=== PATIENT | female | born 1960 | race Caucasian/White ===

== ENCOUNTER 2018-03-14 14:17 | Emergency (ER) | payer BC ==
--- OUTSIDE RECORDS SUMMARY | 2018-03-14 14:35 | XMS REPORT ---
:1960 External Reference #:[id number] Author Organization [facility] Address [address] [place] [address] Phone [phone] Care Team Providers Name Role Phone Abdiaziz Ernandez MD Care Team Information Occupational Therapy Assist Unavailable Abdiaziz Ernandez MD Primary Care Physician Unavailable Payers Type Date Identification Numbers Payment Provider Subscriber Commercial Effective: Policy Number: BC/BS Of DAFNE Bam Johnson 2012 [id number] Group Name: BCBS Enhanced Benefits [address] [address] PayID: [id number] [place] [address] Problems Date Description Provider Status Onset: 01/02/2014 Obstructive sleep apnea syndrome Abdiaziz Ernandez M.D. Active Onset: 05/15/2015 Non-toxic multinodular goiter Abdiaziz Ernandez M.D. Active Onset: 10/24/2016 Disorder of bone Abdiaziz Ernandez M.D. Active Onset: 10/24/2016 Depressive disorder Abdiaziz Ernandez M.D. Active Onset: 10/24/2016 Bilateral carpal tunnel syndrome Abdiaziz Ernandez M.D. Active Onset: 10/24/2016 Mitral valve disorder Abdiaziz Ernandez M.D. Active Onset: 10/24/2016 Adult health examination Adbiaziz Ernandez M.D. Active Onset: 10/24/2016 Migraine without aura, not Abdiaziz Ernandez M.D. Active refractory Onset: 12/15/2017 Minimal cognitive impairment Abdiaziz Ernandez M.D. Active Onset: 12/15/2017 Pain in limb Abdiaziz Ernandez M.D. Active Onset: 01/02/2014 Osteochondropathy Abdiaziz Ernandez M.D. Inactive Inactive: 10/24/2016 Onset: 01/02/2014 Mixed hyperlipidemia Abdiaziz Ernandez M.D. Inactive Inactive: 10/24/2016 Onset: 01/02/2014 Concussion injury of brain Abdiaziz Ernandez M.D. Inactive Inactive: 10/24/2016 Onset: 05/15/2015 Abnormal weight gain Abdiaziz Ernandez M.D. Inactive Inactive: 10/24/2016 Onset: 05/15/2015 Palpitations Abdiaziz Ernandez M.D. Inactive Inactive: 10/24/2016 Onset: 07/11/2016 Cough Abdiaziz Ernandez M.D. Inactive Inactive: 10/24/2016 Onset: 07/11/2016 Ingrowing nail Abdiaziz Ernandez M.D. Inactive Inactive: 10/24/2016 Family History Date Family Member(s) Problem(s) Comments Onset: (age 42 Years) Father OK cigars Mother Osteoporosis Paternal Grandmother Osteoporosis Social History Type Date Description Comments Marital Status Patient has a significant other Cigarette Use Never Smoked Cigarettes ETOH Use Occasionally consumes alcohol Smoking Patient has never smoked Allergies, Adverse Reactions, Alerts Date Description Reaction Status Severity Comments 02/19/2012 NKDA active 05/15/2015 Bees active Medications Medication Date Status Form Strength Qnty SIG Indications Ordering Provider Cephalexin 03/13/ Active Capsules 500mg 14caps 1 by mouth L03.211 Samantha 2018 twice a Chago, day for 7 [employer] days Gabapentin 10/02/ Active Capsules 100mg 90caps 1 by mouth Abdiaziz Ross 2018 three Shallish, times a M.D. day Epipen 2-Cruzito 05/15/ Active Solution 0.3mg/0.3M 1units use as 2014 Auto-Injec L ricky Singh [employer] Celexa 02/18/ Active Tablets 40mg 90tabs 1 by mouth F43.21 2011 every day YENNY Wang F32.89 Axert 08/14/2006 Active Tablets 12.5mg 30tabs 1 at onset G43.009 Abdiaziz Ross of migraine Shallish, sx M.D. Vitamin D Active Tablets 1000Uni 1 by mouth Unknown t every day otc Azithromycin 07/09/2017 Hx Tablets 250mg 6tabs take 2 R05 Tiffani - tablets by George, 10/01/2017 mouth today [employer] then take 1 tablet daily for next 4 days Note 10/24/2016 Hx needs to Abdiaziz F. - have new Oma, 07/08/2017 cpap M.D. equipment for sleep apnea syndrome Prednisone 07/11/2016 Hx Tablets 20mg 10tabs 2 po qd for Abdiaziz F. - 2 days, Oma, 10/22/2016 then M.D. decrease by 1/2 pill every every 2 days then stop Azithromycin 07/11/2016 Hx Tablets 250mg 12tabs take 2 J06.9 Abdiaziz F. - tablets by Oma, 10/21/2016 mouth x 3d M.D. then take 1 tablet daily for next 6 days Symbicort 07/11/2016 Hx Aerosol 80-4.5m 10.2uni inhale 2 Abdiaziz F. - cg/Act ts puffs by Oma, 10/21/2016 mouth two M.D. times daily Benzonatate 07/11/2016 Hx Capsules 100mg 20caps 1-2 by Abdiaziz F. - mouth three Oma, 10/22/2016 times a day M.D. as needed Dulera 05/10/2016 Hx Aerosol 100-5mc sample 2 puff R05 Tiffani - g/Act twice a day George, 07/11/2016 [employer] Azithromycin 11/09/2015 Hx Tablets 250mg 12tabs take 2 J06.9 Tiffani - tablets by George, 05/10/2016 mouth x 3d [employer] then take 1 tablet daily for next 6 days Budesonide 12/27/2014 Hx Suspension 32mcg/A 1units 2sprays/nos R04.0 Tiffani - ct tril/d George, 05/10/2016 [employer] Physical 05/11/2014 Hx treatment Abdiaziz F. Therapy - and Oma, 12/27/2014 evaluation M.D. low back pain Ibuprofen 05/11/2014 Hx Tablets 600mg 60tabs take 1 724.1 Abdiaziz F. - tablet 3 Oma, 12/27/2014 times a M.D. day as needed 719.44 Flexeril 05/11/2014 - Hx Tablets 10mg 40tabs 1 po q hs prn 723.1 Abdiaziz F. 12/27/2014 muscle spasm Ajit Ernandez Percocet 05/11/2014 - Hx Tablets 5-325m 30tabs 1 po 4 hours Abdiaziz FMela 12/27/2014 g prn Ajit Ernandez Medrol (Cruzito) 05/11/2014 - Hx Tablets 4mg 1tabs as directed Abdiaziz FMela 12/27/2014 Ajit Ernandez Auvi-Q 03/03/2014 - Hx Soaj 0.3mg/ 1units use prn Abdiaziz FMela 05/15/2015 0.3ML anaphylaxis Ajit Ernandez Alendronate 01/02/2014 - Hx Tablets 70mg 12tabs 1 po qweek Abdiazizgrace Ross Sodium 05/11/2014 Ajit Ernandez Zofran Odt 06/29/2013 - Hx Tablets 8mg 4tabs 1 po bid prn Venus 01/02/2014 Dispers vomiting Shannon, Afnp-C Cheratussin ac 06/29/2013 - Hx Syrup 100-10 4oz 5-10 ml every 786.2 Venus 07/06/2013 mg/5ML 6 hrs prn Shannon, cough Afnp-C Work Excuse 06/29/2013 - Hx seen in this Venus 01/02/2014 office , will Shannon, be off work Afnp-C through 07/01/13, will return 07/02/12 Flexeril 01/26/2013 - Hx Tablets 10mg 20tabs 1 po q hs prn 723.1 Tiffani 01/02/2014 muscle spasm George, [employer] Biaxin 09/30/2012 - Hx Tablets 500mg 20tabs take one 466.0 Samantha 12/08/2012 tablet po bid Chago, x 10 days [employer] finish all medication Ventolin HFA 09/30/2012 - Hx Aerosol 108(90 1inhaler 2 puffs bid x 466.0 Samantha 05/11/2014 Base) 10 days Chago, mcg/Ac [employer] t Cheratussin ac 09/30/2012 - Hx Syrup 100-10 100ml 5 ml every 12 786.2 Samantha 12/08/2012 mg/5ML hrs prn cough Chago, [facility] Work Excuse 09/30/2012 - Hx excuse from Samantha 01/29/2013 work due to Chago, illness [employer] 09/27/12 and 10/04/12 Vicoprofen 04/24/2012 - Hx Tablets 7.5-20 60tabs 1-2 po qhs Tiffani 01/29/2013 0mg prn George, [employer] Lamotrigine 02/19/2012 - Hx Tablets 100mg 90tabs 1/2 by mouth F43.21 [facility] 04/30/2017 every night George, at bedtime [facility] Voltaren 02/19/2012 - Hx Gel 1% Gel 300mg apply to 719.41 [facility] 01/02/2014 painful area George, tid [employer] Percocet 09/11/2011 - Hx Tablets 5-325m 20tabs 1 po 4 hours Abdiaziz F. 02/19/2012 g prn Ajit Ernandez Zofran 09/11/2011 - Hx Tablets 4mg 10tabs 1 po q6h prn Abdiaziz F. 02/19/2012 dt Ajit Ernandez Ibuprofen 01/16/2011 - Hx Tablets 600mg 30tabs take 1 tablet 724.1 Abdiaziz F. 01/02/2014 3 times a Oma, day as needed Adriana.DMela 719.44 Physical Therapy 01/16/2011 - Hx treatment and Abdiaziz F. 02/19/2012 evaluation Shallish, neck and chest SkyDMela pain Prednisone 09/20/2010 - Hx Tablets 20mg 5tabs 1 tabs po qd x 785. Tiffani 01/16/2011 5 days 6 George, [employer] Hydrocodone/Acet 09/20/2010 - Hx Tablets 5-32 30tabs 1-2 po qid prn 785. Tiffani aminophen 01/16/2011 5mg pain 6 George, [employer] Azithromycin 09/09/2010 - Hx Tablets 250m 6tabs 2 po today and Narinder T. 09/20/2010 g 1 po x 4 days Ajit Robertson Hydrocodone/Acet 09/09/2010 - Hx Tablets 5-32 30tabs 1-2 po qid prn Narinder Grajeda aminophen 09/20/2010 5mg pain Ajit Robertson Prednisone 09/09/2010 - Hx Tablets 20mg 5tabs 1 tabs po qd x Samantha 09/20/2010 5 days jb Renee M.D. Metoprolol 05/24/2009 - Hx Tablets ER 25mg 90tabs 1/2 po qd Abdiaziz F. Succinate 09/20/2010 24HR Ajit Ernandez Ultram ER 01/31/2009 - Hx Tablets ER 200m sample 1 po qhs 784. Tiffani 05/24/2009 24HR g 0 George, [employer] Cipro 11/13/2007 - Hx Tablets 500m 20tabs 1 po bid Narinder Grajeda 03/28/2008 g Ajit Robertson Wrist Splint, 09/20/2007 - Hx 1units Right Wrist Tiffani Restrictive 11/22/2007 ;Wear as George, Flex/Extend Directed [employer] Isosorbide 05/17/2007 - Hx Tablets 10mg 1 tid Family Dinitrate 09/20/2007 [facility] Potassium 05/17/2007 - Hx Capsules 10Me 180caps 1 po qd Family Chloride 11/13/2007 q [facility] Asa 05/17/2007 - Hx 81mg PO qd Family 03/28/2008 [facility] Protonix 05/17/2007 - Hx Tablets 40mg 30tabs 1 PO qd Abdiaziz F. 11/13/2007 Ajit Ernandez Zithromax 12/05/2006 - Hx Capsules 250m 6caps 2 Tabs PO X1, 466. Tiffani 03/08/2007 g Then 1 Tab PO 0 George, qd X 4 More [employer] Days Physical Therapy 08/14/2006 - Hx treatment and 625. Tiffani 05/17/2007 evaluation of 6 George, stress [employer] incontinence Hearing Eval 08/14/2006 - Hx PT needs to 389. Tiffani 05/17/2007 have A hearing 9 George, evaluation for [employer] hearing loss Augmentin 02/06/2006 - Hx Tablets 500m 20tabs 1 po bid with 462 Tiffani 08/14/2006 g;12 food x 10D George, 5 mg [employer] Axert 01/26/2006 - Hx Tablets 12.5 Samples 1 At Onset Of 346. Tiffani 02/06/2006 mg Migraine SX 10 GeorgeYENNY tang Zmax 08/23/2005 - Hx Suspension 2Gra 60cc 2 Gram PO qd X 466. Glen A. 08/24/2005 /60c 1 0 ziggy Wyatt M.D. Codiclear-DH 08/23/2005 - Hx 100cc One TSP bid 466. Glen A. 09/02/2005 prn 0 Ajit Wyatt Prevacid 07/29/2005 - Hx Capsules 30mg 30caps 1 PO qd Abdiaziz F. 02/06/2006 Ajit Ernandez Doxycycline 09/18/2004 - Hx 100m 20units One PO bid Venus 09/28/2004 g Daily For , Afnp-C Keflex 05/21/2004 - Hx 500m 20units 1 po bid Priya R 09/18/2004 g TRUNG Jim Return To Work 10/19/2003 - Hx seen here, michael Donovan 09/21/2004 to return to [employer], work 09/23/04 Carrie Out Of Work 09/22/2003 - Hx out of work Abdiaziz F. Until 05/21/2004 until october Oma, Ajit Advair Discus 09/12/2003 - Hx 100/ I one inhalation Abdiaziz F. 09/18/2004 50 twice daily Ajit Ernandez Combivent Mdi 09/12/2003 - Hx 1units 2 puffs qid Abdiaziz F. 04/15/2004 Ajit Ernandez Out Of Work 08/09/2003 - Hx will be out of Abdiaziz F. 09/22/2003 work mroa Ernandez M.D. filled out for out of work from 05/08/03 to 08/21/03 Bextra 06/06/2003 - Hx Tablets 10mg Samples 1-2 po qd prn Abdiaziz F. 09/12/2003 Ajit Ernandez Indocin 05/25/2003 - Hx 25mg 60units 1-2 po tid Abdiaziz F. 06/06/2003 with food Ajit Ernandez Note For School 05/08/2003 - Hx no work until Priya R Or Work Absence 05/25/2003 notice. YENNY Mendoza-Ziggy patient has acute pulmonary disease. any questions please contact me. thank you Lelesin ac 04/24/2003 - Hx Liq 4Oz 1-2 tsp po Venus 05/17/2007 q4hs prn cough Carrie Ortega Singulair 04/24/2003 - Hx 10mg 30units qd Priya R 04/15/2004 TRUNG Jim Biaxin XL 04/24/2003 - Hx 500m Priya R 05/25/2003 TRUNG Fields One P.O. bid For Ten Days Edita 04/24/2003 - Hx 180m 30units One qd Priya R 05/25/2003 TRUNG Fields Note For School 04/24/2003 - Hx No Work From Priya R Or Work Absence 05/25/2003 April 24, 2002 To TRUNG May 08, 2003 Due To Acute Illness Zyrtec 03/24/2003 - Hx Tabs 10mg 30tabs 1 po qd Priya R 04/24/2003 TRUNG Jim Tequin 03/24/2003 - Hx 400m 10units 1 PO qd Priya R 05/25/2003 TRUNG Fields Avelox 03/24/2003 - Hx 400m 10units 1 qd Priya R 05/25/2003 TRUNG Fields Advair 03/24/2003 - Hx 250/ One One Inhalation Priya R 05/25/2003 50 bid TRUNG Jim Robitussin 03/24/2003 - Hx Liq ac 120cc 1 TSP PO qid Priya R 05/25/2003 prn Cough TRUNG Jim Celexa 04/21/2002 - Hx 20mg 30units 2 po qd Tiffani 02/19/2012 YENNY Wangsin ac 03/05/2002 - Hx 4Oz 1-2 TSP PO Q4H Karely 03/15/2002 prn Carrie Mcneil Zithromax 03/05/2002 - Hx 250m 6units 2 Tabs Day 1 Karely 03/10/2002 tj Mcneil, 1 Afnp-C Tab qd Days 2 Thru 5 Aciphex 01/20/2002 - Hx 20mg 30units 1 PO qd Abdiaziz F. 12/20/2002 Ajit Ernandez Out Of Work 04/27/2001 - Hx Will Be Out Of Abdiaziz FMela 04/28/2001 Work Through Oma 04/21/01 Alla. She May Return 04/22/01 Out Of Work 04/07/2001 - Hx Will Be Out Of Abdiaziz F. 04/08/2001 Work From O[facility], 04/07/01 to Ajit 04/21/01for post concussive syndrome Out Of Work 04/06/2001 - Hx Will Be Out Of Abdiaziz F. 04/07/2001 [facility] To Ajit 04/21/01 Physical Therapy 04/05/2001 - Hx Treatment And Abdiaziz F. 04/18/2001 Evaluation Rogelio Ernandez.DMela Out Of Work 03/24/2001 - Hx Will Be Out Of Abdiaziz FMela 03/25/2001 Work For 2 Walter Ernandez M.D. Physical Therapy 03/11/2001 - Hx Treatment And Abdiaziz FMela 03/12/2001 Evaluation Ajit Ernandez Neck Pain Thumb Spica 03/11/2001 - Hx 1units Abdiaziz FMela 03/12/2001 Ajit Ernandez Out Of Work 07/29/2000 - Hx Will Be Out Of Abdiaziz F. 07/30/2000 Work Lauren Ernandez M.D. 07/22/00-07/25/00 Zoloft 07/23/2000 - Hx 100m 30units Take One Daily Abdiaziz FMela 12/20/2002 tj Ernandez M.D. Albuterol Unit 07/23/2000 - Hx 1Box Q 3-4 HRS prn Abdiaziz F. Dose 2.5MG 03/11/2001 Ajit Ernandez Prednisone 07/22/2000 - Hx 0 0units Family 03/11/2001 [facility] Robitussin ac 07/22/2000 - Hx 0units 1-2 TSP PO Q4H Family 03/11/2001 prn [facility] Out Of Work 07/22/2000 - Hx Will Be Out Of Karely 07/25/2000 Work Carrie Mcneil Until 07/25/00 Zithromax 03/19/2000 - Hx 250m 6units 2 Tabs Day 1 Tiffani 03/29/2000 g George, 1 [employer] Tab qd Days 2 Thru 5 Robitussin ac 03/19/2000 - Hx 4Oz 1-2 TSP PO Q4H Tiffani 03/29/2000 prn George, [employer] Zoloft 10/26/1999 - Hx 50mg 30units 1 PO qd Abdiaziz F. 07/23/2000 Ajit Ernandez Motrin 10/26/1999 - Hx 600m 60units 1 PO tid prn Abdiaziz F. 12/20/2002 tj Ernandez M.D. Zithromax 05/03/1999 - Hx 250m 6units 2 Tabs Day 1 Tiffani 05/08/1999 g George, 1 [employer] Tab qd Days 2 Thru 5 Fenesin 05/03/1999 - Hx Tabs 600m 15tabs 1 PO bid prn Tiffani 10/26/1999 g For Congestion George [employer] Note - Hx no work until Hernán, 05/25/2003 further Priya [employer]-C notice- PT has acute pulmonary disease. any questions, please contact me .thank you. nr hernán joshua Levbid - Hx Tablets ER 0.37 1 PO qd Unknown 02/26/2010 12HR 5mg Feosol - Hx Tablets 45mg qod Unknown 02/19/2012 Alendronate - Hx Solution 70mg 300units use weekly as Abdiaziz F. Sodium 10/24/2016 /75M directed Julio C Ernandez M.D. Multivitamin - Hx Tablets 1 by mouth Unknown Adult 10/01/2017 every day Hydrocortisone - Hx Cream 2.5% apply to Unknown 03/12/2018 affected area three times a day Immunizations CPT Code Status Date Vaccine Lot # [id number] Given 05/15/2015 Influenza Vac, Quadrivalent, Slit Virus, Im [id number] Given 08/18/2013 Hepatitis B Immunization, adult dosage, for [id number] intramuscular use 46685 Given 05/11/2013 Hepatitis B Immunization, adult dosage, for [id number] intramuscular use 26945 Given 01/26/2013 Hepatitis B Immunization, adult dosage, for [id number] intramuscular use 70390 Given 01/26/2013 Hep A Adlt Immunization [id number] 52676 Given 02/26/2010 Tdap Tetanus, W Pertussis [id number] Vital Signs Date Vital Result Comment 03/13/2018 BP Systolic 104 mmHg BP Diastolic 60 mmHg Heart Rate 78 /min Body Temperature 97.7 F Height 66.5 inches 5'6.50" Weight 186.00 lb BMI (Body Mass Index) 29.6 kg/m2 12/15/2017 BP Systolic 136 mmHg BP Diastolic 60 mmHg Heart Rate 66 /min Body Temperature 97.9 F Respiratory Rate 16 /min Height 66.5 inches 5'6.50" Weight 185.12 lb BMI (Body Mass Index) 29.4 kg/m2 10/02/2017 BP Systolic 122 mmHg BP Diastolic 68 mmHg Heart Rate 84 /min Body Temperature 97.3 F Height 66.5 inches 5'6.50" Weight 187.00 lb BMI (Body Mass Index) 29.7 kg/m2 07/09/2017 BP Systolic 110 mmHg BP Diastolic 80 mmHg Heart Rate 78 /min Body Temperature 97.5 F Height 66.5 inches 5'6.50" Weight 188.00 lb BMI (Body Mass Index) 29.9 kg/m2 04/30/2017 BP Systolic 128 mmHg BP Diastolic 92 mmHg Heart Rate 80 /min Body Temperature 97.5 F Height 66.5 inches 5'6.50" Weight 184.00 lb BMI (Body Mass Index) 29.3 kg/m2 10/24/2016 BP Systolic 90 mmHg BP Diastolic 58 mmHg Heart Rate 68 /min Body Temperature 97.9 F Respiratory Rate 16 /min Height 66.5 inches 5'6.50" Weight 185.00 lb BMI (Body Mass Index) 29.4 kg/m2 07/11/2016 BP Systolic 124 mmHg BP Diastolic 80 mmHg Heart Rate 72 /min Body Temperature 97.7 F Respiratory Rate 18 /min O2 % BldC Oximetry 98 % Height 66.5 inches 5'6.50" Weight 183.00 lb BMI (Body Mass Index) 29.1 kg/m2 05/10/2016 BP Systolic 120 mmHg BP Diastolic 80 mmHg Heart Rate 64 /min Body Temperature 97.7 F Height 66.5 inches 5'6.50" Weight 180.00 lb BMI (Body Mass Index) 28.6 kg/m2 11/09/2015 BP Systolic 110 mmHg BP Diastolic 70 mmHg Heart Rate 72 /min Body Temperature 98.2 F Respiratory Rate 18 /min Weight 181.00 lb 05/15/2015 BP Systolic 120 mmHg BP Diastolic 78 mmHg Heart Rate 60 /min Body Temperature 96.7 F Respiratory Rate 16 /min Height 66.5 inches 5'6.50" Weight 187.50 lb BMI (Body Mass Index) 29.8 kg/m2 12/27/2014 BP Systolic 126 mmHg BP Diastolic 80 mmHg Heart Rate 62 /min Body Temperature 97.6 F Respiratory Rate 18 /min Height 66.5 inches 5'6.50" Weight 183.00 lb BMI (Body Mass Index) 29.1 kg/m2 05/11/2014 BP Systolic 120 mmHg BP Diastolic 70 mmHg Heart Rate 68 /min Body Temperature 98.4 F Respiratory Rate 18 /min Height 66.5 inches 5'6.50" Weight 175.00 lb BMI (Body Mass Index) 27.8 kg/m2 03/03/2014 BP Systolic 110 mmHg BP Diastolic 66 mmHg Heart Rate 64 /min Body Temperature 98.4 F Respiratory Rate 16 /min Height 66.5 inches 5'6.50" Weight 175.00 lb BMI (Body Mass Index) 27.8 kg/m2 01/02/2014 BP Systolic 110 mmHg BP Diastolic 64 mmHg Heart Rate 64 /min Body Temperature 98.2 F Respiratory Rate 15 /min Height 66.5 inches 5'6.50" Weight 178.50 lb BMI (Body Mass Index) 28.4 kg/m2 06/29/2013 BP Systolic 110 mmHg BP Diastolic 80 mmHg Heart Rate 76 /min Body Temperature 98.2 F Respiratory Rate 18 /min Height 66.5 inches 5'6.50" Weight 169.00 lb BMI (Body Mass Index) 26.9 kg/m2 01/26/2013 BP Systolic 108 mmHg BP Diastolic 64 mmHg Heart Rate 72 /min Body Temperature 97.9 F Respiratory Rate 18 /min Height 66.5 inches 5'6.50" Weight 168.00 lb BMI (Body Mass Index) 26.7 kg/m2 12/08/2012 BP Systolic 104 mmHg BP Diastolic 62 mmHg Heart Rate 76 /min Body Temperature 99.1 F Respiratory Rate 16 /min Height 66.5 inches 5'6.50" Weight 169.00 lb BMI (Body Mass Index) 26.9 kg/m2 09/30/2012 BP Systolic 122 mmHg BP Diastolic 82 mmHg Heart Rate 102 /min Body Temperature 98.2 F Height 66.5 inches 5'6.50" Weight 174.38 lb BMI (Body Mass Index) 27.7 kg/m2 06/28/2012 BP Systolic 110 mmHg BP Diastolic 80 mmHg Heart Rate 76 /min Body Temperature 98.1 F Height 66.5 inches 5'6.50" Weight 188.00 lb BMI (Body Mass Index) 29.9 kg/m2 02/19/2012 BP Systolic 138 mmHg BP Diastolic 84 mmHg Heart Rate 66 /min Body Temperature 98.4 F Height 66.5 inches 5'6.50" Weight 194.00 lb BMI (Body Mass Index) 30.8 kg/m2 01/16/2011 BP Systolic 128 mmHg BP Diastolic 80 mmHg Heart Rate 76 /min Body Temperature 98.2 F Height 66.5 inches 5'6.50" Weight 193.00 lb BMI (Body Mass Index) 30.7 kg/m2 09/20/2010 BP Systolic 112 mmHg BP Diastolic 72 mmHg Heart Rate 68 /min Body Temperature 97.6 F Height 66.5 inches 5'6.50" Weight 182.00 lb BMI (Body Mass Index) 28.9 kg/m2 09/09/2010 BP Systolic 120 mmHg BP Diastolic 80 mmHg Heart Rate 72 /min Body Temperature 98.4 F 05/13/2010 BP Systolic 90 mmHg BP Diastolic 70 mmHg Heart Rate 68 /min Body Temperature 98.1 F Height 66.5 inches 5'6.50" Weight 188.00 lb BMI (Body Mass Index) 29.9 kg/m2 03/23/2010 BP Systolic 110 mmHg BP Diastolic 66 mmHg Heart Rate 60 /min Body Temperature 97.9 F Height 66.5 inches 5'6.50" Weight 187.00 lb BMI (Body Mass Index) 29.7 kg/m2 02/26/2010 BP Systolic 90 mmHg BP Diastolic 68 mmHg Heart Rate 60 /min Body Temperature 97.7 F Height 66.5 inches 5'6.50" Weight 189.00 lb BMI (Body Mass Index) 30.0 kg/m2 12/05/2009 BP Systolic 110 mmHg BP Diastolic 60 mmHg Body Temperature 97.0 F Height 66.5 inches 5'6.50" Weight 183.00 lb BMI (Body Mass Index) 29.1 kg/m2 08/23/2009 BP Systolic 118 mmHg BP Diastolic 70 mmHg Heart Rate 72 /min Height 66.5 inches 5'6.50" Weight 180.00 lb BMI (Body Mass Index) 28.6 kg/m2 05/24/2009 BP Systolic 124 mmHg BP Diastolic 68 mmHg Heart Rate 72 /min Body Temperature 97.8 F Weight 177.00 lb 01/31/2009 BP Systolic 118 mmHg BP Diastolic 62 mmHg Heart Rate 68 /min Body Temperature 98.1 F Respiratory Rate 20 /min Weight 187.00 lb 11/20/2008 BP Systolic 106 mmHg BP Diastolic 70 mmHg Heart Rate 68 /min Height 66.5 inches 5'6.50" Weight 191.00 lb BMI (Body Mass Index) 30.4 kg/m2 08/08/2008 BP Systolic 122 mmHg BP Diastolic 72 mmHg Heart Rate 68 /min Body Temperature 98.3 F Weight 180.00 lb 07/04/2008 BP Systolic 114 mmHg BP Diastolic 78 mmHg Heart Rate 64 /min Body Temperature 98.4 F Respiratory Rate 16 /min Height 66.5 inches 5'6.50" Weight 186.00 lb BMI (Body Mass Index) 29.6 kg/m2 03/28/2008 BP Systolic 120 mmHg BP Diastolic 80 mmHg Heart Rate 84 /min Body Temperature 98.2 F O2 % BldC Oximetry 98 % Height 66.5 inches 5'6.50" Weight 183.00 lb BMI (Body Mass Index) 29.1 kg/m2 11/22/2007 BP Systolic 110 mmHg BP Diastolic 80 mmHg Heart Rate 76 /min Body Temperature 98.8 F Height 66.5 inches 5'6.50" 11/13/2007 BP Systolic 108 mmHg BP Diastolic 60 mmHg Heart Rate 60 /min Body Temperature 98.1 F Height 66.5 inches 5'6.50" Weight 186.00 lb BMI (Body Mass Index) 29.6 kg/m2 09/20/2007 BP Systolic 114 mmHg BP Diastolic 64 mmHg Heart Rate 74 /min Height 66.5 inches 5'6.50" Weight 186.00 lb BMI (Body Mass Index) 29.6 kg/m2 07/28/2007 BP Systolic 108 mmHg BP Diastolic 70 mmHg Heart Rate 72 /min Body Temperature 97.6 F Respiratory Rate 16 /min Height 66.5 inches 5'6.50" Weight 183.00 lb BMI (Body Mass Index) 29.1 kg/m2 05/17/2007 BP Systolic 112 mmHg BP Diastolic 60 mmHg Heart Rate 72 /min Height 66.5 inches 5'6.50" Weight 186.00 lb BMI (Body Mass Index) 29.6 kg/m2 03/08/2007 BP Systolic 100 mmHg BP Diastolic 60 mmHg Heart Rate 66 /min Body Temperature 98.5 F Height 66.5 inches 5'6.50" 12/05/2006 BP Systolic 110 mmHg BP Diastolic 80 mmHg Heart Rate 72 /min Body Temperature 98.2 F Height 66.5 inches 5'6.50" Weight 185.00 lb BMI (Body Mass Index) 29.4 kg/m2 08/14/2006 BP Systolic 120 mmHg BP Diastolic 70 mmHg Heart Rate 68 /min Body Temperature 98.0 F Height 66.5 inches 5'6.50" 03/12/2006 BP Systolic 116 mmHg BP Diastolic 74 mmHg Heart Rate 82 /min Respiratory Rate 14 /min Height 66.5 inches 5'6.50" 02/06/2006 BP Systolic 110 mmHg BP Diastolic 70 mmHg Body Temperature 98.8 F Height 66.5 inches 5'6.50" Weight 176.00 lb BMI (Body Mass Index) 28.0 kg/m2 01/26/2006 BP Systolic 130 mmHg BP Diastolic 80 mmHg Heart Rate 72 /min Body Temperature 97.9 F Height 66.5 inches 5'6.50" 12/31/2005 BP Systolic 112 mmHg BP Diastolic 72 mmHg Heart Rate 80 /min Height 66.5 inches 5'6.50" Weight 177.00 lb BMI (Body Mass Index) 28.1 kg/m2 08/23/2005 BP Systolic 122 mmHg BP Diastolic 82 mmHg Heart Rate 74 /min Body Temperature 98.5 F O2 % BldC Oximetry 99 % Height 66.5 inches 5'6.50" Weight 182.00 lb BMI (Body Mass Index) 28.9 kg/m2 08/18/2005 BP Systolic 124 mmHg BP Diastolic 76 mmHg Height 66.5 inches 5'6.50" Weight 184.00 lb BMI (Body Mass Index) 29.3 kg/m2 07/29/2005 BP Systolic 118 mmHg BP Diastolic 80 mmHg Heart Rate 66 /min Body Temperature 99.2 F Height 66.5 inches 5'6.50" Weight 186.00 lb BMI (Body Mass Index) 29.6 kg/m2 02/18/2005 BP Systolic 120 mmHg BP Diastolic 72 mmHg Heart Rate 80 /min Body Temperature 97.8 F Height 66.5 inches 5'6.50" Weight 175.00 lb BMI (Body Mass Index) 27.8 kg/m2 09/18/2004 BP Systolic 122 mmHg BP Diastolic 72 mmHg Heart Rate 60 /min Body Temperature 97.0 F O2 % BldC Oximetry 99 % Height 66.5 inches 5'6.50" Weight 187.00 lb BMI (Body Mass Index) 29.7 kg/m2 05/21/2004 BP Systolic 128 mmHg BP Diastolic 80 mmHg Heart Rate 72 /min Height 66.5 inches 5'6.50" Weight 188.00 lb BMI (Body Mass Index) 29.9 kg/m2 04/15/2004 BP Systolic 112 mmHg BP Diastolic 70 mmHg Heart Rate 60 /min Body Temperature 96.8 F Height 66.5 inches 5'6.50" Weight 188.00 lb BMI (Body Mass Index) 29.9 kg/m2 10/19/2003 BP Systolic 108 mmHg BP Diastolic 70 mmHg Heart Rate 72 /min Height 66.5 inches 5'6.50" Weight 190.00 lb BMI (Body Mass Index) 30.2 kg/m2 09/12/2003 BP Systolic 100 mmHg BP Diastolic 70 mmHg Heart Rate 68 /min Height 66.5 inches 5'6.50" Weight 192.00 lb BMI (Body Mass Index) 30.5 kg/m2 08/15/2003 BP Systolic 96 mmHg BP Diastolic 62 mmHg Heart Rate 60 /min O2 % BldC Oximetry 99 % Height 66.5 inches 5'6.50" Weight 190.00 lb BMI (Body Mass Index) 30.2 kg/m2 07/04/2003 BP Systolic 106 mmHg BP Diastolic 70 mmHg Heart Rate 72 /min Height 66.5 inches 5'6.50" Weight 186.00 lb BMI (Body Mass Index) 29.6 kg/m2 05/25/2003 BP Systolic 114 mmHg BP Diastolic 72 mmHg Heart Rate 60 /min Height 66.5 inches 5'6.50" Weight 183.00 lb BMI (Body Mass Index) 29.1 kg/m2 03/24/2003 BP Systolic 128 mmHg BP Diastolic 70 mmHg Heart Rate 64 /min Body Temperature 97.1 F Height 66.5 inches 5'6.50" Weight 186.00 lb BMI (Body Mass Index) 29.6 kg/m2 12/20/2002 BP Systolic 112 mmHg BP Diastolic 80 mmHg Height 66.5 inches 5'6.50" Weight 180.00 lb BMI (Body Mass Index) 28.6 kg/m2 03/05/2002 BP Systolic 110 mmHg BP Diastolic 80 mmHg Heart Rate 88 /min Body Temperature 99.8 F Height 66.5 inches 5'6.50" Weight 180.00 lb BMI (Body Mass Index) 29.0 kg/m2 02/10/2002 BP Systolic 118 mmHg BP Diastolic 70 mmHg Height 66.5 inches 5'6.50" Weight 181.00 lb BMI (Body Mass Index) 29.2 kg/m2 01/20/2002 BP Systolic 112 mmHg BP Diastolic 70 mmHg Body Temperature 97.2 F Height 66.5 inches 5'6.50" Weight 181.00 lb BMI (Body Mass Index) 29.2 kg/m2 03/11/2001 BP Systolic 92 mmHg BP Diastolic 68 mmHg Heart Rate 68 /min Body Temperature 97.1 F Height 66.5 inches 5'6.50" Weight 164.00 lb BMI (Body Mass Index) 26.5 kg/m2 07/22/2000 BP Systolic 90 mmHg BP Diastolic 60 mmHg Heart Rate 72 /min Body Temperature 98.6 F Height 66.5 inches 5'6.50" Weight 143.00 lb BMI (Body Mass Index) 23.1 kg/m2 03/19/2000 BP Systolic 110 mmHg BP Diastolic 70 mmHg Body Temperature 97.1 F Weight 143.00 lb 10/26/1999 BP Systolic 94 mmHg LA SM Cuff BP Diastolic 64 mmHg LA SM Cuff Body Temperature 97.4 F Weight 140.00 lb 05/03/1999 Body Temperature 96.8 F Weight 142.00 lb Results Test Date Test Result H/L Range Note Laboratory test finding 10/02/2017 Vitamin B-12 325 pg/mL 230-1050 Free T4 1.65 ng/dL High 0.75-1.54 1 TSH 1.76 mIU/L 0.50-6.00 Vitamin D25 37 30-100 Comprehensive Metabolic Prof 10/02/2017 Sodium 141 mEq/L 134-149 Potassium 4.3 mEq/L 3.6-5.5 Chloride 105 mEq/L 94-112 Carbon Dioxide 26 mEq/L 21-32 Glucose 99 mg/dL 70-105 BUN 12 mg/dL 6-26 Creatinine 0.8 mg/dL 0.6-1.4 BUN/Creat Ratio 15.0 CALC 8.0-36.0 Calcium 9.9 mg/dL 8.6-10.2 Total Protein 7.2 g/dL 6.4-8.3 Albumin 4.8 g/dL 3.8-5.5 Globulin 2.4 g/dL 2.0-4.8 A/G Ratio 2.0 CALC 0.6-2.3 Alk. Phosphatase 65 U/L 30-110 Alt (SGPT) 16 U/L 7-35 Ast (Sgot) 15 U/L 5-34 Total Bilirubin 0.5 mg/dL 0.2-1.3 GFR Non- >60 ml/min/1.73m^ >=60 GFR >60 ml/min/1.73m^ >=60 CBC Electronic [facility] 10/02/2017 WBC 5.2 x10^3/UL 4.0-10.0 RBC 4.75 x10^6/UL 3.93-6.00 HGB 13.3 g/dL 12.0-17.0 HCT 40 % 35-50 MCV 83.8 fL 80.0-95.0 MCH 28.0 pg 25.6-32.2 MCHC 33.4 g/dL 32.2-36.0 RDW-CV 13.7 % 11.6-14.4 PLT 329 x10^3/UL 163-400 MPV 10.0 fL 9.4-12.4 Gisel# 3.16 x10^3/UL 1.56-6.13 Lymph# 1.47 x10^3/UL 1.18-3.74 Nobles# 0.42 x10^3/UL 0.24-0.82 Eos # 0.1 x10^3/UL 0.0-0.5 Baso # 0.04 x10^3/UL 0.01-0.08 Gisel% 60.4 % 34.0-70.0 Lymph % 28.1 % 20.0-52.0 Nobles% 8.0 % 5.0-12.0 Eos% 2.5 % 0.7-7.0 Baso% 0.8 % 0.1-1.2 Ua - Micro (a) 10/24/2016 Appearance clear Color yellow Glucose, Urine (a/[facility]/CTX) neg Bilirubin neg Ketones neg SP Grav 1.010 Blood neg PH 5.0 Protein neg Urobil 0.2 Nitrite neg Leukocytes (a/[facility]rex) trace WBC ([facility]) 1-2 RBC 0-1 Epith rare /Lpf Bacteria rare /Hpf Complete Blood Count 10/24/2016 WBC 6.6 x10^3/UL 3.6-9.6 RBC 4.77 x10^6/UL 3.90-5.70 HGB 13.4 g/dL 12.1-17.2 HCT 39 % 36-50 MCV 83.0 fL 82.2-97.4 MCH 28.1 pg 27.6-33.3 MCHC 34.0 g/dL 33.0-35.5 RDW 14.2 % High 11.6-13.7 PLT 316 x10^3/UL 150-400 MPV 7.4 fL 7.4-10.4 Gran # 4.3 x10^3/UL 1.5-7.2 Lymph# 2.1 x10^3/UL 0.7-4.9 Nobles# 0.2 x10^3/UL 0.1-0.9 Gran % 63.5 % 42.2-75.2 Lymph % 32.3 % 20.5-51.1 Nobles% 4.2 % 1.7-9.3 Comprehensive Metabolic Prof 10/24/2016 Sodium 139 mEq/L 134-149 Potassium 4.7 mEq/L 3.6-5.5 Chloride 102 mEq/L 94-112 Carbon Dioxide 24 mEq/L 21-32 Glucose 97 mg/dL 70-105 BUN 22 mg/dL 6-26 Creatinine 0.7 mg/dL 0.6-1.4 BUN/Creat Ratio 31.4 CALC 8.0-36.0 Calcium 9.7 mg/dL 8.6-10.2 Total Protein 6.9 g/dL 6.4-8.3 Albumin 4.4 g/dL 3.8-5.5 Globulin 2.5 g/dL 2.0-4.8 A/G Ratio 1.8 CALC 0.6-2.3 Alk. Phosphatase 49 U/L 30-110 Alt (SGPT) 18 U/L 7-35 Ast (Sgot) 17 U/L 5-34 Total Bilirubin 0.3 mg/dL 0.2-1.3 GFR Non- >60 ml/min/1.73m^ >=60 GFR >60 ml/min/1.73m^ >=60 Lipid Profile 10/24/2016 Cholesterol 179 mg/dL 120-200 Triglycerides 152 mg/dL 30-200 HDL Cholesterol 58 mg/dL 30-85 LDL (Calculated) 91 CALC 0-129 VLDL Cholesterol 30 mg/dL 0-50 HDL Risk Factor 3.1 CALC 0.0-4.4 Laboratory test finding 10/24/2016 TSH 1.42 mIU/L 0.50-6.00 Free T4 1.48 ng/dL 0.75-1.54 Vitamin D25 40 30-100 Comprehensive Metabolic Prof 05/15/2015 Sodium 138 mEq/L 134-149 Potassium 4.3 mEq/L 3.6-5.5 Chloride 99 mEq/L 94-112 Carbon Dioxide 27 mEq/L 21-32 Glucose 98 mg/dL 70-105 BUN 13 mg/dL 6-26 Creatinine 1.0 mg/dL 0.6-1.4 BUN/Creat Ratio 13.0 CALC 8.0-36.0 Calcium 9.5 mg/dL 8.6-10.2 Total Protein 7.2 g/dL 6.4-8.3 Albumin 4.5 g/dL 3.8-5.5 Globulin 2.7 g/dL 2.0-4.8 A/G Ratio 1.7 CALC 0.6-2.3 Alk. Phosphatase 56 U/L 30-110 Alt (SGPT) 15 U/L 7-35 Ast (Sgot) 17 U/L 5-34 Total Bilirubin 0.2 mg/dL 0.2-1.3 GFR Non- >60 ml/min/1.73m^ >=60 GFR >60 ml/min/1.73m^ >=60 Laboratory test finding 05/15/2015 Free T4 1.55 ng/dL High 0.75-1.54 2 TSH 1.20 mIU/L 0.50-6.00 Lipid Profile 05/15/2015 Cholesterol 164 mg/dL 120-200 Triglycerides 140 mg/dL 30-200 HDL Cholesterol 61 mg/dL 30-85 LDL (Calculated) 75 CALC 0-129 VLDL Cholesterol 28 mg/dL 0-50 HDL Risk Factor 2.7 CALC 0.0-4.4 CBC Electronic (a) 05/15/2015 WBC 6.9 3.6-9.6 RBC 4.90 3.90-5.70 Hemoglobin (Fma/CMC/CTX) 13.3 g/dL 12.1 - 17.2 Hematocrit (Fma/CMC/CTX) 41.7 % 36.1 - 50.3 Platelets 345 10^3/ul 150-400 Lymph% 39.2 % 17.0-48.0 Mixed% 4.0 Neutrophils % 56.8 Mean Corpuscular Vol 85 82.2-97.4 Mean Corpuscular Hemoglobin 27.1 Low 27.6-33.3 Mean Corpuscular Hemo Concen 31.9 Low 32.0-36.0 RDW 13.8 High 11.6-13.7 Mean Platelet Volume 7.3 5.5-11.0 Laboratory test finding 03/23/2014 Honey Bee Allergen IgE <0.35 kU/L 3 Paper Wasp Allergen IgE <0.35 kU/L 4 White-Faced Hornet Allerg IgE <0.35 kU/L 5 Yellow Hornet Allergen IgE <0.35 kU/L 6 Yellow Jacket Allergen IgE <0.35 kU/L 7 Tryptase 4.9 ng/mL <11.5 8 Urinalysis Profile 02/26/2014 Urine Color Straw Urine Appearance Clear Urine Specific [place] 1.003 Low 1.010-1.030 Urine pH 5.0 5-9 Urine Urobilinogen Negative Negative Urine Ketones Negative Negative Urine Protein Negative Negative Urine Leukocytes 1+ Negative Urine Blood Negative Negative Urine Nitrite Negative Negative Urine Bilirubin Negative Negative Urine Glucose 1+(50 mg/dL) Negative Urine White Blood Cell Trace Absent Urine Red Blood Cell Trace(0-2/hpf) Absent Urine Bacteria 1+ Absent Urine Squamous Epithelial Cell Present Absent CBC Auto Diff 02/26/2014 White Blood Count 12.4 10^3/uL High 4.8-10.8 Red Blood Count 4.66 10^6/uL 4.0-5.4 Hemoglobin 13.0 g/dL 12.0-16.0 Hematocrit 40 % 35-47 Mean Corpuscular Volume 85 fL 80-97 Mean Corpuscular Hemoglobin 28 pg 27-31 Mean Corpuscular HGB Conc 33 g/dL 31-36 Red Cell Distribution Width 14 % 10.5-15 Platelet Count 356 10^3/uL 150-450 Mean Platelet Volume 8 um3 7.4-10.4 Abs Neutrophils 5.6 10^3/uL 1.5-7.7 Abs Lymphocytes 5.6 10^3/uL High 1.0-4.8 Abs Monocytes 0.8 10^3/uL 0-0.8 Abs Eosinophils 0.3 10^3/uL 0-0.6 Abs Basophils 0 10^3/uL 0-0.2 Abs Nucleated RBC 0.01 10^3/uL Granulocyte % 45.6 % 38-83 Lymphocyte % 45.2 % 25-47 Monocyte % 6.5 % 1-9 Eosinophil % 2.3 % 0-6 Basophil % 0.4 % 0-2 Nucleated Red Blood Cells % 0.1 Inr/Protime 02/26/2014 Inr 1.01 0.85-1.06 Laboratory test finding 02/26/2014 Activated Partial 27.3 seconds 24.0- 36.1 Thrombo Time Lactic Acid 2.8 mmol/L High 0.5-2.2 9 Comp Metabolic Panel 02/26/2014 Sodium 136 mmol/L 133-145 Potassium 2.9 mmol/L Low 3.7-5.6 Chloride 105 mmol/L 101-111 Co2 Carbon Dioxide 23 mmol/L 22-32 Anion Gap 8 mmol/L 2-11 Glucose 211 mg/dL High 70-100 Blood Urea Nitrogen 16 mg/dL 6-24 Creatinine 0.79 mg/dL 0.51-0.95 BUN/Creatinine Ratio 20.3 High 8-20 Calcium 9.0 mg/dL 8.6-10.3 Total Protein 7.0 g/dL 6.4-8.9 Albumin 4.1 g/dL 3.2-5.2 Globulin 2.9 g/dL 2-4 Albumin/Globulin Ratio 1.4 1-3 Total Bilirubin 0.30 mg/dL 0.2-1.0 Alkaline Phosphatase 55 U/L 34-104 Alt 14 U/L 7-52 Ast 16 U/L 13-39 Egfr Non- 75.6 >60 Egfr 97.2 >60 10 Laboratory test finding 02/26/2014 Troponin I 0.00 ng/mL <0.03 11 Magnesium 2.0 mg/dL 1.9-2.7 12 Basic Metabolic Panel 12/08/2012 Sodium 139 mmol/L 133-145 Potassium 3.3 mmol/L Low 3.5-5.0 Chloride 103 mmol/L 101-111 Co2 Carbon Dioxide 28.0 mmol/L 22-32 Anion Gap 8.0 mmol/L 2-11 Glucose 97 mg/dL 70-100 Blood Urea Nitrogen 4 mg/dL Low 6-24 Creatinine 0.70 mg/dL 0.50-1.40 BUN/Creatinine Ratio 5.7 Low 8-20 Calcium 9.0 mg/dL 8.1-9.9 Egfr Non- 87.2 >60 Egfr 112.1 >60 13 Laboratory test 12/08/2012 C Reactive Protein 8.5 mg/dL High Less than 0.5 finding CBC Auto Diff 12/08/2012 White Blood Count 4.6 10^3/uL Low 4.8-10.8 Red Blood Count 4.69 10^6/uL 4.0-5.4 Hemoglobin 12.8 g/dL 12.0-16.0 Hematocrit 39 % 35-47 Mean Corpuscular Volume 84 fL 80-97 Mean Corpuscular Hemoglobin 27 pg 27-31 Mean Corpuscular HGB Conc 33 g/dL 31-36 Red Cell Distribution Width 15 % 10.5-15 Platelet Count 235 10^3/uL 150-450 Mean Platelet Volume 9 um3 7.4-10.4 Abs Neutrophils 2.9 10^3/uL 1.5-7.7 Abs Lymphocytes 1.2 10^3/uL 1.0-4.8 Abs Monocytes 0.4 10^3/uL 0-0.8 Abs Eosinophils 0 10^3/uL 0-0.6 Abs Basophils 0 10^3/uL 0-0.2 Abs Nucleated RBC 0 10^3/uL Granulocyte % 64.5 % 38-83 Lymphocyte % 25.8 % 25-47 Monocyte % 8.4 % 1-9 Eosinophil % 0.9 % 0-6 Basophil % 0.4 % 0-2 Nucleated Red Blood Cells % 0 Laboratory test finding 12/08/2012 Erythrocyte Sed Rate 40 mm/Hr High 0- 30 Lyme Disease Serology Positive Negative 14 Lyme Western Blot 12/08/2012 Lyme Disease IgG Ab WB Negative Negative Lyme Disease IgG Bands Present No bands detecte <SEE NOTE> kDa 15 Lyme Disease IgM Ab WB Positive Negative Lyme Disease IgM Bands Present p41, p23, kDa Lyme Disease Interpretation See Comment 16 Laboratory test finding 12/06/2012 CSF Glucose 55 mg/dL 50-75 CSF Total Protein 36.0 mg/dL 15-45 CSF Culture & Sensitivity 12/06/2012 CSF Culture Gram Stain (SEE NOTE) 17 Body Fluid Cell Count 12/06/2012 Body Fluid Source Cerebral Spinal Body Fluid Appearance Clear Body Fluid Color Colorless CSF Tube # 1 Body Fluid Volume 0.5 mL Body Fluid WBC 1 Body Fluid RBC 220 Body Fluid Lymph 9 Body Fluid Nobles 1 Body Fluid Total Cells Counted 10 Fluid Reviewed By MD (SEE NOTE) 18 Miscellaneous Test 12/06/2012 Test Name LYME CSF Result See Comment 19 Laboratory test finding 12/06/2012 Serum Negative Negative 20 Comp Metabolic Panel 12/06/2012 Sodium 135 mmol/L 133-145 Potassium 3.7 mmol/L 3.5-5.0 Chloride 103 mmol/L 101-111 Co2 Carbon Dioxide 23.0 mmol/L 22-32 Anion Gap 9.0 mmol/L 2-11 Glucose 117 mg/dL High 70-100 Blood Urea Nitrogen 10 mg/dL 6-24 Creatinine 0.70 mg/dL 0.50-1.40 BUN/Creatinine Ratio 14.3 8-20 Calcium 9.3 mg/dL 8.1-9.9 Total Protein 7.2 g/dL 6.2-8.1 Albumin 3.8 g/dL 3.6-5.4 Globulin 3.4 g/dL 2-4 Albumin/Globulin Ratio 1.1 1-3 Total Bilirubin 0.7 mg/dL 0.4-1.5 Alkaline Phosphatase 75 U/L 30-110 Alt 23 U/L 14-54 Ast 25 U/L 12-42 Egfr Non- 87.2 >60 Egfr 112.1 >60 21 Laboratory test finding 12/06/2012 Lipase 22 U/L 22-51 22 Creatine Kinase 30 U/L 0-200 23 CBC Auto Diff 12/06/2012 White Blood Count 4.1 10^3/uL Low 4.8-10.8 Red Blood Count 4.84 10^6/uL 4.0-5.4 Hemoglobin 13.8 g/dL 12.0-16.0 Hematocrit 41 % 35-47 Mean Corpuscular Volume 84 fL 80-97 Mean Corpuscular Hemoglobin 29 pg 27-31 Mean Corpuscular HGB Conc 34 g/dL 31-36 Red Cell Distribution Width 14 % 10.5-15 Platelet Count 200 10^3/uL 150-450 Mean Platelet Volume 9 um3 7.4-10.4 Abs Neutrophils 3.0 10^3/uL 1.5-7.7 Abs Lymphocytes 0.7 10^3/uL Low 1.0-4.8 Abs Monocytes 0.4 10^3/uL 0-0.8 Abs Eosinophils 0 10^3/uL 0-0.6 Abs Basophils 0 10^3/uL 0-0.2 Abs Nucleated RBC 0.01 10^3/uL Granulocyte % 72.5 % 38-83 Lymphocyte % 17.2 % Low 25-47 Monocyte % 9.6 % High 1-9 Eosinophil % 0.1 % 0-6 Basophil % 0.6 % 0-2 Nucleated Red Blood Cells % 0.2 Laboratory test finding 12/06/2012 Erythrocyte Sed Rate 39 mm/Hr High 0- 30 Urinalysis 12/06/2012 Urine Color [place] Urine Appearance Clear Urine Specific [place] 1.030 1.010-1.030 Urine Esterase 1+ Negative Urine Nitrate Negative Negative Urine Urobilinogen Negative E.U./dL Negative Urine Protein 1+ mg/dL Negative Urine pH 5.5 5-9 Urine Blood Negative Negative Urine Ketones 2+ mg/dL Negative Urine Bilirubin 2+ Negative Urine Glucose Negative mg/dL Negative Urine Microscopic 12/06/2012 Urine WBC 2+ (>10-30 /hpf) None Seen 24 Urine RBC 1+ (<3 /hpf) None Seen Urine Epithelial Cells 2+ Squamous /hpf None Seen Bacteria Urine 1+ None Seen Urine Culture And Sensitivities 12/06/2012 Urine Culture (SEE NOTE) 25 Comprehensive Metabolic Prof 09/20/2010 Albumin 4.8 g/dL 3.8-5.5 Alk. Phos. 73 U/L 30-110 Alt (SGPT) 18 U/L 7-35 Ast (Sgot) 15 U/L 5-34 BUN 15 mg/dL 6-26 Calcium 10.2 mg/dL 8.6-10.2 Chloride 105 mEq/L 94-112 Creatinine 0.8 mg/dL 0.6-1.4 Carbon Dioxide 26 mEq/L 21-32 Glucose 95 mg/dL 70-105 Sodium 139 mEq/L 134-149 Total Bilirubin 0.3 mg/dL 0.2-1.3 Total Protein 7.6 g/dL 6.3-8.1 Potassium 4.4 mEq/L 3.6-5.5 Globulin 2.8 g/dL 2.0-4.8 A/G Ratio 1.8 Calc 0.6-2.2 BUN/Creat Ratio 19.3 Calc 8.0-36.0 CBC Electronic (a) 09/20/2010 WBC 6.6 3.6-9.6 RBC 4.54 3.90-5.70 Hemoglobin (Fma/CMC/CTX) 13.1 g/dL 12.1 - 17.2 Hematocrit (Fma/CMC/CTX) 39.0 % 36.1 - 50.3 Platelets 310 10^3/ul 150-400 Lymph% 36.0 20.5-51.1 Mixed% 7.7 Neutrophils % 56.3 Mean Corpuscular Vol 85.9 82.2-97.4 Mean Corpuscular Hemoglobin 28.9 27.6-33.3 Mean Corpuscular Hemo Concen 33.6 32.0-36.0 RDW 14.2 High 11.6-13.7 Mean Platelet Volume 10.9 6.5-11.0 CBC With Electronic Diff 06/03/2010 White Blood Count 5.8 CUMM 4.8-10.8 Red Cell Count 4.57 CUMM 4.2-5.4 Hemoglobin 13.1 g/dL 12.0-16.0 Hematocrit 38 % 35-47 Mean Corpuscular Volume 83 um3 79-97 Mean Corpuscular Hemoglob 29 pg 27-31 Mean Corpuscular HGB Cone 35 g/dL 32-36 Redcell Distribution WDTH 14 % 10.5-15 Platelet Count 287 CUMM 150-450 Mean Platelet Volume 7.4 um3 7.4-10.4 Gran % 63.0 % 38-83 Lymph % 27.3 % 25-47 Mononuclear % 7.5 % 1-9 Eosinophil % 1.9 % 0-6 Basophil % 0.3 % 0-2 Abs Lymphs 1.6 1.0-4.8 Abs Mononuclear 0.4 0-0.8 Absolute Neutrophil Count 3.7 1.5-7.7 Abs Eosinophils 0.1 0-0.6 Abs Basophils 0 0-0.2 Basic Metabolic Panel 06/03/2010 Sodium 141 mmol/L 135-145 Potassium 4.1 mmol/L 3.5-5.0 Chloride 109 mmol/L 101-111 Co2 (Carbon Dioxide) 26.0 mmol/L 22-32 Anion Gap 6.0 mmol/L 2-11 26 Glucose 83 mg/dL 70-100 27 BUN 11 mg/dL 6-24 Creatinine 0.70 mg/dL 0.50-1.40 One Over Creatinine 1.40 BUN/Creatinine Ratio 15.7 8-20 Calcium 9.0 mg/dL 8.1-9.9 eGFR Non- 93.8 > 60 eGFR 113.5 > 60 28 Cytology Non-Fiberglass Boat [employer]isher 03/28/2010 Cytology Non Fiberglass Boat Finisher <SEE 29 NOTE> Cytology Non-Fiberglass Boat Finisher 03/28/2010 Cytology Non Fiberglass Boat Finisher <SEE 30 NOTE> Laboratory test 03/19/2010 Iron Total 68 g/dL 28-170 finding Ferritin 22 NG/ML 11.0-307 Vitamin B12 286 pg/mL 180-914 Folic Acid 10.9 NG/ML 2-16 Comprehensive Metabolic Prof 02/26/2010 Albumin 4.6 g/dL 3.8-5.5 Alk. Phos. 69 U/L 30-110 Alt (SGPT) 18 U/L 7-35 Ast (Sgot) 17 U/L 5-34 BUN 18 mg/dL 6-26 Calcium 10.0 mg/dL 8.6-10.2 Chloride 98 mEq/L 94-112 Creatinine 0.7 mg/dL 0.6-1.4 Carbon Dioxide 26 mEq/L 21-32 Glucose 88 mg/dL 70-105 Sodium 140 mEq/L 134-149 Total Bilirubin 0.3 mg/dL 0.2-1.3 Total Protein 7.4 g/dL 6.3-8.1 Potassium 5.0 mEq/L 3.6-5.5 Globulin 2.8 g/dL 2.0-4.8 A/G Ratio 1.6 Calc 0.6-2.2 BUN/Creat Ratio 23.6 Calc 8.0-36.0 Laboratory test finding 02/26/2010 Free T4 1.45 ng/dL 0.75-1.54 TSH 1.00 mIU/L 0.50-6.00 Anti Dna (SS) Igg, AB 02/26/2010 Anti-Dna(SS)IgG, Ab, Qn <20 EU 0-19 31 Laboratory test finding 02/26/2010 Rheumatoid Arth Factor 8.5 IU/mL 0.0- 13.9 Laboratory test finding 02/26/2010 Sed Rate (Fma/CMC/[facility]rex) 9mm CBC (a) 02/26/2010 WBC 5.6 3.6-9.6 RBC 4.95 3.90-5.70 Hemoglobin (Fma/CMC/CTX) 13.6 g/dL 12.1 - 17.2 Hematocrit (Fma/CMC/CTX) 43.0 % 36.1 - 50.3 Mean Corpuscular Vol 86.9 82.2-97.4 Mean Corpuscular Hemaglobin 27.5 Low 27.6-33.3 Mean Corpuscular Hemo Concen 31.6 Low 33.0-36.0 Platelets 333 10^3/ul 150-400 Lymph% 36.4 20.5-51.1 Mixed% 4.1 Neutrophils % 59.5 RDW 14.3 High 11.6-13.7 Mean Platelet Volume 11.0 High 7.4-10.4 Comprehensive Metabolic Prof 08/23/2009 Albumin 4.6 g/dL 3.8-5.5 Alk. Phos. 64 U/L 30-110 Alt (SGPT) 12 U/L 7-35 Ast (Sgot) 13 U/L 5-34 BUN 17 mg/dL 6-26 Calcium 9.5 mg/dL 8.6-10.2 Chloride 100 mEq/L 94-112 Creatinine 0.8 mg/dL 0.6-1.4 Carbon Dioxide 27 mEq/L 21-32 Glucose 88 mg/dL 70-105 Sodium 140 mEq/L 134-149 Total Bilirubin 0.3 mg/dL 0.2-1.3 Total Protein 7.3 g/dL 6.3-8.1 Potassium 4.9 mEq/L 3.6-5.5 Globulin 2.6 g/dL 2.0-4.8 A/G Ratio 1.8 Calc 0.6-2.2 BUN/Creat Ratio 19.9 Calc 8.0-36.0 Laboratory test finding 08/23/2009 Free T4 1.34 ng/dL 0.75-1.54 TSH 1.22 mIU/L 0.50-6.00 CBC (a) 08/23/2009 WBC 5.4 3.6-9.6 RBC 5.06 3.90-5.70 Hemoglobin (Fma/CMC/CTX) 14.1 g/dL 12.1 - 17.2 Hematocrit (Fma/CMC/CTX) 44.3 % 36.1 - 50.3 Mean Corpuscular Vol 87.5 82.2-97.4 Mean Corpuscular Hemaglobin 27.9 27.6-33.3 Mean Corpuscular Hemo Concen 31.8 Low 33.0-36.0 Platelets 333 10^3/ul 150-400 Lymph% 32.2 20.5-51.1 Mixed% 7.6 Neutrophils % 60.2 RDW 14.5 High 11.6-13.7 Mean Platelet Volume 10.2 7.4-10.4 Surgical Pathology 07/23/2009 Surgical Pathology <SEE 32 NOTE> CBC With Electronic 04/03/2009 White Blood Count 6.2 CUMM 4.8-10.8 33 Diff Red Cell Count 4.94 CUMM 4.2-5.4 33 Hemoglobin 13.9 g/dL 12.0-16.0 33 Hematocrit 42 % 35-47 33 Mean Corpuscular Volume 84 um3 79-97 33 Mean Corpuscular Hemoglob 28 pg 27-31 33 Mean Corpuscular HGB Cone 34 g/dL 32-36 33 Redcell Distribution WDTH 14 % 10.5-15 33 Platelet Count 311 CUMM 150-450 33 Mean Platelet Volume 8.3 um3 7.4-10.4 33 Gran % 58.6 % 38-83 33 Lymph % 32.6 % 25-47 33 Mononuclear % 7.1 % 1-9 33 Eosinophil % 1.4 % 0-6 33 Basophil % 0.3 % 0-2 33 Abs Lymphs 2.0 1.0-4.8 33 Abs Mononuclear 0.4 0-0.8 33 Absolute Neutrophil Count 3.6 1.5-7.7 33 Abs Eosinophils 0.1 0-0.6 33 Abs Basophils 0 0-0.2 33 Basic Metabolic Panel 04/03/2009 Sodium 138 mmol/L 135-145 33 Potassium 4.6 mmol/L 3.5-5.0 33 Chloride 102 mmol/L 101-111 33 Co2 (Carbon Dioxide) 28.0 mmol/L 22-32 33 Anion Gap 8.0 mmol/L 2-11 33, 34 Glucose 79 mg/dL 70-100 33, 35 BUN 11 mg/dL 6-24 33 Creatinine 0.70 mg/dL 0.50-1.40 33 One Over Creatinine 1.40 33 BUN/Creatinine Ratio 15.7 8-20 33 Calcium 9.8 mg/dL 8.1-9.9 33, 36 eGFR Non- 94.1 > 60 33 eGFR 113.9 > 60 33, 37 Ua - Micro (a) 01/31/2009 Appearance clear Color yellow Glucose - Bilirubin - Ketones trace SP Grav 1.025 Blood - PH 6.0 Protein - Urobil 0.2 Nitrite - Leukocytes (Fma/CMC/[facility]) - Hyaline - /Lpf Granular - /Lpf WBC (a,[facility]rex) 0-2 RBC 1-3 Mucus mod amt /Lpf Epith occ /Lpf Bacteria 1+ /Hpf Amorphous - /Lpf Crystals, Fluid (Fma/CMC/CTX) - Z#Comments - Laboratory test 01/31/2009 Urine Culture negative finding ([facility]) Laboratory test 01/03/2009 Iron 51 g/dL Low 60-150 38, 39 finding Complete Blood Count 01/03/2009 WBC 5.6 x10^3/uL 3.6-9.6 38 Gran# 3.6 x10^3/uL 1.5-7.2 38 Gran% 64.6 % 42.2-75.2 38 HCT 41 % 36-50 38 HGB 14.0 g/dL 12.1-17.2 38 Lymph# 1.5 x10^3/uL 0.7-4.9 38 Lymph% 27.4 % 20.5-51.1 38 MCH 28.1 pg 27.6-33.3 38 MCV 83.3 fL 82.2-97.4 38 MCHC 33.7 g/dL 33.0-35.5 38 Mo# 0.4 x10^3/uL 0.1-0.9 38 Mo% 8.0 % 1.7-9.3 38 MPV 8.4 fL 7.4-10.4 38 PLT 373 x10^3/uL 150-400 38 RBC 4.97 x10^6/uL 3.90-5.70 38 RDW 13.5 % 11.6-13.7 38 Lipid Profile 01/03/2009 Cholesterol 126 mg/dL 120-200 38 HDL 38 mg/dL 30-85 38 Triglycerides 96 mg/dL 30-200 38 HDL Risk Factor 3.3 CALC Low 4.2-7.0 38 LDL (Calculated) 69 CALC 0-129 38 VLDL (Calculated) 19 mg/dL 0-50 38 Comprehensive Metabolic Prof 01/03/2009 Albumin 4.0 g/dL 3.8-5.5 38 Alk. Phos. 58 U/L 30-110 38 Alt (SGPT) 12 U/L 7-35 38 Ast (Sgot) 9 U/L 5-34 38 BUN 18 mg/dL 6-26 38 Calcium 9.5 mg/dL 8.6-10.2 38 Chloride 103 mEq/L 94-112 38 Creatinine 0.8 mg/dL 0.6-1.4 38 Carbon Dioxide 24 mEq/L 21-32 38 Glucose 95 mg/dL 70-105 38 Sodium 138 mEq/L 134-149 38 Total Bilirubin 0.3 mg/dL 0.2-1.3 38 Total Protein 6.6 g/dL 6.3-8.1 38 Potassium 4.4 mEq/L 3.6-5.5 38 Globulin 2.6 g/dL 2.0-4.8 38 A/G Ratio 1.5 Calc 0.6-2.2 38 BUN/Creat Ratio 21.6 Calc 8.0-36.0 38 Laboratory test finding 01/03/2009 TSH 1.54 mIU/L 0.50-6.00 38 Free T4 1.54 ng/dL 0.75-1.54 38 Cytology Non [employer] 09/21/2008 Cytology Non [employer] <SEE 40 ([facility] [place] Cytology Non [employer] 09/21/2008 Cytology Non [employer] <SEE 41 ([facility] [place] NOTE> CBC ([facility]ma) 07/04/2008 WBC 7.1 3.6-9.6 RBC 4.62 3.90-5.70 Hemoglobin (Fma/CMC/CTX) 13.5 g/dL 12.1 - 17.2 Hematocrit (Fma/CMC/CTX) 39.0 % 36.1 - 50.3 Mean Corpuscular Vol 84.4 82.2-97.4 Mean Corpuscular Hemaglobin 29.2 27.6-33.3 Mean Corpuscular Hemo Concen 34.6 33.0-36.0 Platelets 290 10^3/ul 150-400 Lymph% 31.4 20.5-51.1 Mixed% 6.9 Neutrophils % 61.7 RDW 14.5 High 11.6-13.7 Mean Platelet Volume 10.2 7.4-10.4 Laboratory test finding 07/04/2008 Free T4 1.38 ng/dL 0.75-1.54 42 TSH 1.40 mIU/L 0.50-6.00 42 Basic Metabolic Profile 07/04/2008 BUN 20 mg/dL 6-26 42 Calcium 9.2 mg/dL 8.6-10.2 42 Chloride 103 mEq/L 94-112 42 Creatinine 0.8 mg/dL 0.6-1.4 42 Carbon Dioxide 28 mEq/L 21-32 42 Glucose 91 mg/dL 70-105 42 Sodium 142 mEq/L 134-149 42 Potassium 4.4 mEq/L 3.6-5.5 42 BUN/Creat Ratio 25.4 Calc 8.0-36.0 42 CBC With Electronic Diff Stat 06/08/2008 White Blood Count 7.3 CUMM 4.8- 10.8 Red Cell Count 5.02 CUMM 4.2-5.4 Hemoglobin 14.0 g/dL 12.0-16.0 Hematocrit 41 % 35-47 Mean Corpuscular Volume 82 um3 79-97 Mean Corpuscular Hemoglob 28 pg 27-31 Mean Corpuscular HGB Cone 34 g/dL 32-36 Redcell Distribution WDTH 13 % 10.5-15 Platelet Count 423 CUMM 150-450 Mean Platelet Volume 8.2 um3 7.4-10.4 Gran % 56.4 % 38-83 Lymph % 36.4 % 25-47 Mononuclear % 4.9 % 1-9 Eosinophil % 1.7 % 0-6 Basophil % 0.6 % 0-2 Abs Lymphs 2.7 1.0-4.8 Abs Mononuclear 0.4 0-0.8 Absolute Neutrophil Count 4.1 1.5-7.7 Abs Eosinophils 0.1 0-0.6 Abs Basophils 0 0-0.2 Comp Stat 06/08/2008 Sodium 139 mmol/L 135-145 Potassium 4.0 mmol/L 3.5-5.0 Chloride 107 mmol/L 101-111 Co2 (Carbon Dioxide) 26.0 mmol/L 22-32 Anion Gap 6.0 mmol/L 2-11 43 Glucose 100 mg/dL 70-100 44 BUN 10 mg/dL 6-24 Creatinine 0.80 mg/dL 0.50-1.40 One Over Creatinine 1.20 BUN/Creatinine Ratio 12.5 8-20 Calcium 9.5 mg/dL 8.1-9.9 45 Total Protein 7.2 GM/DL 6.2-8.1 Albumin 4.3 GM/DL 3.6-5.4 Globulin 2.9 GM/DL 2-4 Albumin/Globulin Ratio 1.5 1-3 Bilirubin Total 0.7 mg/dL 0.4-1.5 Alkaline Phosphatase 58 U/L 30-110 Alt (SGPT) 13 U/L Low 14-54 Ast (Sgot) 23 U/L 12-42 Laboratory test finding 06/08/2008 Troponin-I (TnI) 0.01 NG/ML 0-0.06 46 Basic Metabolic Panel Stat 04/16/2008 Sodium 139 mmol/L 135-145 Potassium 3.0 mmol/L Low 3.5-5.0 Chloride 108 mmol/L 101-111 Co2 (Carbon Dioxide) 25.0 mmol/L 22-32 Anion Gap 6.0 mmol/L 2-11 47 Glucose 108 mg/dL High 70-100 48 BUN 9 mg/dL 6-24 Creatinine 0.70 mg/dL 0.50-1.40 One Over Creatinine 1.40 BUN/Creatinine Ratio 12.9 8-20 Calcium 8.9 mg/dL 8.1-9.9 49 CBC With Manual Diff Stat 04/16/2008 White Blood Count 7.3 CUMM 4.8-10.8 Red Cell Count 4.60 CUMM 4.2-5.4 Hemoglobin 13.1 g/dL 12.0-16.0 Hematocrit 38 % 35-47 Mean Corpuscular Volume 84 um3 79-97 Mean Corpuscular Hemoglob 28 pg 27-31 Mean Corpuscular HGB Cone 34 g/dL 32-36 Redcell Distribution WDTH 14 % 10.5-15 Platelet Count 317 CUMM 150-450 Mean Platelet Volume 8.5 um3 7.4-10.4 Polysegmented Neutrophil 65 % 38-83 Lymphocyte 24 % 5-47 Monocyte 6 % 0-13 Eosenophil 1 % 0-6 Atypical Lymph 4 % 0-6 Absolute Neutrophil Count 4.7 Anisocytosis SLIGHT Polychromasia SLIGHT Ua - Micro (Fma) 11/13/2007 Appearance CLEAR Color YELOW Glucose NEG Bilirubin NEG Ketones NEG SP Grav 1.025 Blood NEG LMP Current PH 7.0 Protein NEG Urobil 0.2 Nitrite NEG Leukocytes (Fma/CMC/Centrex) NEG Hyaline - /Lpf Granular - /Lpf WBC (Fma,Centrex) 1-4 RBC 0-2 Mucus MUCH /Lpf Epith OCCAS /Lpf Bacteria 2+ /Hpf Amorphous - /Lpf Crystals, Fluid (Fma/CMC/CTX) - Z#Comments - Laboratory test finding 09/20/2007 Thin Prep W/HPV(Lsil/AYAH/Asc) SEE NOTE 50 Cancelled Test SEE COMMENT 51 Ua - Non Micro (Fma) 09/20/2007 Appearance CLEAR Color YELLOW Glucose NEGATIVE Bilirubin NEGATIVE Ketones NEGATIVE SP Grav <=1.005 Blood NEGATIVE PH 5.5 Protein NEGATIVE Urobil 0.2 Nitrite NEGATIVE Leukocytes (Fma/CMC/Centrex) NEGATIVE Laboratory test finding 07/30/2007 Clotest N^NEGATIVE^[facility] <SEE NOTE> 52 Urine (Fma) 07/28/2007 SP Grav >1.030 Urine, (Fma/CMC/CTX) NEGATIVE Ua - Micro (Fma) 07/28/2007 Appearance CLOUDY Color DARK YELLOW Glucose NEGATIVE Bilirubin ICTO NEGATIVE Ketones 15 SP Grav >=1.030 Blood NEGATIVE PH 5.0 Protein NEGATIVE Urobil 1.0 Nitrite NEGATIVE Leukocytes (Fma/CMC/Centrex) NEGATIVE Hyaline - /Lpf Granular - /Lpf WBC (Fma,Centrex) 3-5 RBC 2-4 Mucus MODERATE AMOUNT /Lpf Epith MODERATE /Lpf Bacteria 1+ /Hpf Amorphous - /Lpf Crystals, Fluid (Fma/CMC/CTX) - Z#Comments - Basic Metabolic Profile 05/24/2007 BUN 15 mg/dL 6-26 53 Calcium 9.0 mg/dL 8.6-10.2 53 Chloride 98 mEq/L 94-112 53 Creatinine 0.8 mg/dL 0.6-1.4 53 Carbon Dioxide 27 mEq/L 21-32 53 Glucose 106 mg/dL High 70-105 53 Sodium 135 mEq/L 134-149 53 Potassium 4.2 mEq/L 3.6-5.5 53 BUN/Creat Ratio 18.8 Calc 8.0-36.0 53 Lipid Profile 05/24/2007 Cholesterol 124 mg/dL 120-200 53 HDL 40 mg/dL 30-85 53 Triglycerides 144 mg/dL 30-200 53 HDL Risk Factor 3.1 CALC Low 4.2-7.0 53 LDL (Calculated) 55 CALC 0-129 53 VLDL (Calculated) 29 mg/dL 0-50 53 Complete Blood Count 05/24/2007 WBC 6.1 x10\\S\\3/uL 3.6-9.6 53 Gran# 3.6 x10\\S\\3/uL 1.5-7.2 53 Gran% 59.1 % 42.2-75.2 53 HCT 42 % 36-50 53 HGB 13.9 g/dL 12.1-17.2 53 Lymph# 2.1 x10\\S\\3/uL 0.7-4.9 53 Lymph% 34.0 % 20.5-51.1 53 MCH 29.5 pg 27.6-33.3 53 MCV 88.0 fL 82.2-97.4 53 MCHC 33.4 g/dL 33.0-35.5 53 Mo# 0.4 x10\\S\\3/uL 0.1-0.9 53 Mo% 6.9 % 1.7-9.3 53 MPV 8.6 fL 7.4-10.4 53 PLT 344 x10\\S\\3/uL 150-400 53 RBC 4.73 x10\\S\\6/uL 3.90-5.70 53 RDW 13.4 % 11.6-13.7 53 Protime Stat 04/23/2007 Inr 0.93 54 Protime 11.6 10.9-13.1 Laboratory test finding 04/23/2007 PTT (Aptt) 23.8 20.4-29.5 55 CBC With Electronic Diff Stat 04/23/2007 White Blood Count 5.2 CUMM 4.8- 10.8 Abs Basophils 0 0-0.2 Abs Eosinophils 0.1 0-0.6 Absolute Neutrophil Count 3.3 1.5-7.7 Abs Lymphs 1.5 1.0-4.8 Abs Mononuclear 0.3 0-0.8 Basophil % 0.3 % 0-2 Hematocrit 39 % 35-47 Hemoglobin 13.3 g/dL 12.0-16.0 Eosinophil % 1.3 % 0-6 Gran % 63.8 % 38-83 Lymph % 28.1 % 20-45 Mean Corpuscular HGB Cone 34 g/dL 32-36 Mean Corpuscular Hemoglob 29 pg 27-31 Mean Corpuscular Volume 83 um3 79-97 Mean Platelet Volume 8.8 um3 7.4-10.4 Mononuclear % 6.5 % 1-9 Platelet Count 340 CUMM 150-450 Red Cell Count 4.68 CUMM 4.2-5.4 Redcell Distribution WDTH 14 % 10.5-15 Comp Stat 04/23/2007 One Over Creatinine 1.66 Anion Gap 8.0 mmol/L 2-11 56 Albumin/Globulin Ratio 1.5 1-3 Albumin 3.8 GM/DL 3.6-5.4 Alkaline Phosphatase 41 U/L 30-110 Alt (SGPT) 12 U/L Low 14-54 Ast (Sgot) 16 U/L 12-42 BUN 8 mg/dL 6-24 Calcium 9.1 mg/dL 8.7-10.2 Chloride 108 mmol/L 101-111 Co2 (Carbon Dioxide) 21.0 mmol/L Low 22-32 Globulin 2.6 GM/DL 2-4 Glucose 90 mg/dL 70-105 Potassium 4.6 mmol/L 3.5-5.0 Sodium 137 mmol/L 135-145 Bilirubin Total 0.7 mg/dL 0.4-1.5 Total Protein 6.4 GM/DL 6.2-8.1 BUN/Creatinine Ratio 13.3 8-20 Creatinine 0.6 mg/dL 0.5-1.4 Laboratory test finding 04/23/2007 Troponin-I (TnI) 0.01 NG/ML 0-0.06 57 CBC Electronic (Fma) 02/06/2006 WBC 8.1 3.6-9.6 Lymphocytes 26.6 % 20.5 - 51.1 Monocytes 6.0 % 1.7-9.3 Granulocytes 67.4 % 42.2 - 75.2 Lymphocytes 2.2 10^3/uL 0.7 - 4.9 Monocytes 0.5 10^3/uL 0.1 - 0.9 Granulocytes 5.5 10^3/uL 1.5 - 7.2 RBC 4.71 3.90-5.70 Hemoglobin (Fma/CMC/CTX) 13.0 g/dL 12.1 - 17.2 Hematocrit (Fma/CMC/CTX) 38.8 % 36.1 - 50.3 Mean Corpuscular Vol 82.5 82.2-97.4 Mean Corpuscular Hemaglobin 27.6 27.6-33.3 Mean Corpuscular Hemo Concen 33.5 33.0-36.0 RDW 15.1 High 11.6-13.7 Platelets 352. 10^3/ul 150-400 Mean Platelet Volume 8.4 7.4-10.4 PT/Inr (Fma/CMC) 02/06/2006 PT--Therapy (Fma/CMC/Centrex) 12.1 SEC 10-14 Inr (Fma/CMC/Centrex) 1.0 0.9-1.1 Laboratory test finding 02/06/2006 Throat - Beta Strep Fma NEGATIVE Laboratory test finding 12/31/2005 Thin Prep W/HPV (Lsil/AYAH/Asc) SEE IMAGE HPV, High Risk Only Negative for hig <SEE NOTE> 58 Laboratory test finding 08/18/2005 Thin Prep W/HPV (Lsil/AYAH/Asc) SEE IMAGE 59 Ua - Non Micro (Fma New) 08/18/2005 Appearance CLEAR Color LT YELLOW Glucose NEG Bilirubin NEG Ketones NEG SP Grav 1.020 Blood NEG LMP 08/11/05 PH 5.5 Protein NEG Urobil 0.2 Nitrite NEG Leukocytes NEG Laboratory test 05/25/2003 CRP (High Sensitivity) 1.94 @CRPM mg/L 0.0 - 3.0 60 finding Antinuclear AB (Jessie) NEGATIVE@EIA Negative 61 Comp Metabolic (Fma) 05/25/2003 Glucose, Serum (Fma/CMC/CTX) 90 mg/dL 70- 118 BUN (Fma/CMC/Centrex) 9 mg/dL 6-26 Creatinine (Fma/CMC/CTX) 0.8 mg/dL 0.6-1.4 BUN/Creatinin Ratio 11.9 8.0-36 Sodium 138 134-149 Potassium 4.4 3.6-5.5 Chloride 107 mEq/L 94-112 Co2 24 21-32 Calcium (Fma/CMC/Centrex) 9.8 mg/dL 8.6-10.0 Total Protein 7.3 g/dL 6.3-8.1 Albumin (Fma/CMCC/Centrex) 4.5 3.8-5.5 Globulin 2.9 2.0-4.8 A/G Ratio (Fma/CMC/Centrex) 1.6 0.6-2.2 Alkaline Phosphatase (F/C/CTX) 51 U/L 30-110 Alt (SGPT) 10 10-40 Ast (Sgot) (Fma/CMC/Centrex) 10 U/mL 5-34 Bilirubin, Total 0.6 mg/dL 0.2-1.3 Lipid Profile ([facility]) 05/25/2003 Cholesterol 141 mg/dL 120-200 Triglyceride 132 mg/dL 30-200 HDL-Chol 44 30-85 LDL-Calculated ([facility]) 70 CALC 0-129 VLDL 26 0-50 HDL Risk Factor ([facility]) 3.2 CALC Low 4.2-7.0 CBC Electronic ([facility]) 05/25/2003 WBC 6.0 3.6-9.6 Lymphocytes 25.2 % 20.5 - 51.1 Monocytes 2.0 % 1.7-9.3 Granulocytes 72.8 % 42.2 - 75.2 Lymphocytes 1.5 10^3/uL 0.7 - 4.9 Monocytes 0.1 10^3/uL 0.1 - 0.9 Granulocytes 4.4 10^3/uL 1.5 - 7.2 RBC 5.04 3.90-5.70 Hemoglobin (Fma/CMC/CTX) 14.1 g/dL 12.1 - 17.2 Hematocrit (Fma/CMC/CTX) 42.0 % 36.1 - 50.3 Mean Corpuscular Vol 83.4 82.2-97.4 Mean Corpuscular Hemaglobin 27.9 27.6-33.3 Mean Corpuscular Hemo Concen 33.5 33.0-35.5 RDW 14.1 High 11.6-13.7 Platelets 332 10^3/ul 150-400 Mean Platelet Volume 8.6 7.4-10.4 Free T4/TSH (Fma/CMC/Centrex) 05/25/2003 TSH 1.65 uIU/ml 0.5-6.0 Free T4 1.38 ng/dL 0.75-1.54 Basic Metabolic ([facility]) 05/01/2003 Sodium 134 mmol/L Low 135-145 Potassium 3.9 mmol/L 3.5-5.0 Chloride 107 mmol/L 101-111 Co2 20.0 mmol/L Low 22-32 Anion Gap 7.0 mmol/L 2-11 Glucose, Serum (a/CMC/CTX) 93 mg/dL 70-105 BUN (a/CMC/Centrex) 13 mg/dL 6-24 Creatinine (a/CMC/CTX) 0.8 mg/dL 0.5-1.4 BUN/Creatinin Ratio 16.3 8-20 Calcium (a/CMC/Centrex) 9.7 mg/dL 8.7-10.2 Art Blood Gas 05/01/2003 Art Blood Gas PH 7.56 High 7.35-7.45 ABG PC02 21 MMHG Low 35-45 ABG Po2 106 MMHG High 80-100 ABG 02 Sat 100 % High 95-98 ABG Be -1.3 -2.0-2.0 ABG HC03 18.8 mmol/L Low 19-31 Laboratory test finding 05/01/2003 D Dimer NEGATIVE Negative CBC Electronic ([facility]) 05/01/2003 WBC 8.8 CUMM 4.8-10.8 RBC 4.87 CUMM 4.2-5.4 Hemoglobin (Fma/CMC/CTX) 13.7 g/dL 12.0-16.0 Hematocrit (Fma/CMC/CTX) 40 % 35-47 Mean Corpuscular Vol 82 UM3 79-97 Mean Corpuscular Hemaglobin 28 pg 27-31 Mean Corpuscular Hemo Concen 34 g/dL 32-36 RDW 13 10.5-15 Platelets 363 CUMM 150-450 Mean Platelet Volume 8.4 7.4-10.4 Granulocytes 60.5 % 38-83 Lymphocytes 29.5 % 20-45 Monocytes 6.9 % 1-9 Eosinophil 2.1 0-6 Basophil% 1.0 0-2 Abs Lymphs 2.6 1.0-4.8 Abs Mononuclear 0.6 0-0.8 Abs Grans 5.3 1.5-7.7 Abs Eosinophils 0.2 0-0.6 Abs Basophils 0.1 0-0.2 Laboratory test 05/01/2003 Sed Rate ([facility]/Centrex) 22 MM/HR High 0-15 finding Ua - Micro ([facility]) 01/30/2002 Appearance CLEAR/LT YELLOW Glucose NEG Bilirubin NEG Ketones NEG SP Grav >=1.030 Blood TRACE-LYSED PH 5.0 Protein NEG Urobil 0.2 Nitrite NEG Leukocytes NEG Hyaline - /Lpf Granular - /Lpf WBC'S 1-3 RBC'S 3-5 Mucus MOD AMT /Lpf Epith MOD Bacteria 1+ Amorphous - /Lpf Crystals - /Lpf Comments - CBC With Diff ([facility]) 01/30/2002 WBC 6.1 3.6-9.6 Lymphocytes 26.1 % 20.5 - 51.1 Monocytes 5.8 % 1.7-9.3 Granulocytes 68.1 % 42.2 - 75.2 Lymphocytes 1.6 10^3/uL 0.7 - 4.9 Monocytes 0.4 10^3/uL 0.1 - 0.9 Granulocytes 4.2 10^3/uL 1.5 - 7.2 RBC 4.55 3.90-5.70 Hemoglobin 12.9 g/dL 12.1 - 17.2 Hematocrit 37.8 % 36.1 - 50.3 Mean Corpuscular Vol 82.9 82.2-97.4 Mean Corpuscular Hemaglobin 28.4 27.6-33.3 Mean Corpuscular Hemo Concen 34.2 33.0-34.8 RDW 13.6 11.6-13.7 Platelets 365 10^3/ul 150-400 Mean Platelet Volume 8.2 7.4-10.4 Comp Metabolic ([facility]) 01/30/2002 Albumin .4.5 Low 3.8-5.5 Alkaline Phosphatase 43 U/L 36-117 Bilirubin, Total 0.4 mg/dL 0.2-1.3 BUN 11 7-26 Calcium 9.3 mg/dL 8.6-10.0 Creatinine 0.6 mg/dL 0.6-1.4 Glucose 81 mg/dL 70 - 118 Ast Sgot 17 U/L 5-40 Alt (SGPT) 11 10-40 Total Protein 7.6 g/dL 6.4-8.3 Sodium 142 134-149 Potassium 5.0 3.6-5.5 Chloride 105 mEq/L 94-112 Co2 26 21-32 Globulin 3.1 2.0-4.8 Albumin / Globulin Ratio 1.5 0.6-2.2 BUN/Creatinin Ratio 18.3 8.0-36 Laboratory test finding 10/25/2001 Stool For Blood NEG Negative CBC Electronic ([facility]) 10/25/2001 WBC 6.5 4.8-10.8 RBC 4.81 4.2-5.4 Hemoglobin 13.5 g/dL 12.0-16.0 Hematocrit 39 % 35-47 Mean Corpuscular Vol 80 79-97 Mean Corpuscular Hemaglobin 28 27-31 Mean Corpuscular Hemo Concen 35 32-36 RDW 14 10.5-15 Platelets 297 CUMM 150-450 Mean Platelet Volume 8.1 7.4-10.4 Granulocytes 70.3 % 38-83 Lymphocytes 19.9 % Low 20-45 Monocytes 7.2 % 1-9 Eosinophil 1.9 0-6 Basophil% 0.7 0-2 Abs Lymphs 1.3 1.0-4.8 Abs Mononuclear 0.5 0-0.8 Abs Grans 4.6 1.5-7.7 Abs Eosinophils 0.1 0-0.6 Abs Basophils 0 0-0.2 Basic Metabolic ([facility]) 10/25/2001 Sodium 136 mmol/L 135-145 Potassium 4.5 3.5-5.0 Chloride 104 mmol/L 95-108 Co2 20.8 Low 21-33 Glucose 101 mg/dL 70-105 BUN 19 6-22 Creatinine 0.6 mg/dL 0.5-1.4 BUN/Creatinin Ratio 31.7 High 8-20 Calcium 9.0 mg/dL 8.7-10.2 CBC With Manual Diff ([facility]) 07/17/2001 WBC 14.2 High 4.8-10.8 RBC 4.74 4.2-5.4 Hemoglobin 13.3 g/dL 12.0-16.0 Hematocrit 39 % 35-47 Mean Corpuscular Vol 82 79-97 Mean Corpuscular Hemaglobin 28 27-31 Mean Corpuscular Hemo Concen 34 32-36 RDW 13 10.5-15 Platelets 375 CUMM 150-450 Mean Platelet Volume 8.0 7.4-10.4 Poly From [facility] 79 38-83 Band 8 0-8 Lymph From [facility] 10 5-47 Nobles From [facility] 3 0-13 Eos From [facility] - 0-6 Atypical Lymph - 0-6 Morphology NORMAL Basophils - Basic Metabolic ([facility]) 07/17/2001 Sodium 137 mmol/L 135-145 Potassium 4.1 3.5-5.0 Chloride 102 mmol/L 95-108 Co2 24.1 21-33 Glucose 102 mg/dL 70-105 BUN 13 6-22 Creatinine 0.7 mg/dL 0.5-1.4 BUN/Creatinin Ratio 18.6 8-20 Calcium 9.5 mg/dL 8.7-10.2 Ua - Micro ([facility]) 12/28/2000 Color YELLOW Appearance CLEAR SP Grav 1.028 1.010-1.030 Esterase TRACE High Negative Nitrite NEGATIVE Negative Urobil NEGATIVE Negative Protein NEGATIVE Negative PH 5.0 5-9 Blood NEGATIVE Negative Ketones NEGATIVE Negative Bilirubin, Micro NEGATIVE Negative Glucose NEGATIVE Negative WBC'S 2-5 RBC'S MODERATE Epith FEW Bacteria 1+ CBC Electronic ([facility]) 12/28/2000 WBC 8.1 4.8-10.8 RBC 4.44 4.2-5.4 Hemoglobin 13.1 g/dL 12.0-16.0 Hematocrit 36 % 35-47 Mean Corpuscular Vol 81 79-97 Mean Corpuscular Hemaglobin 30 27-31 Mean Corpuscular Hemo Concen 36 32-36 RDW 14 10.5-15 Platelets 291 CUMM 150-450 Mean Platelet Volume 7.9 7.4-10.4 Granulocytes 61.7 % 38-83 Lymphocytes 26.8 % 20-45 Monocytes 8.4 % 1-9 Eosinophil 2.4 0-6 Basophil% 0.7 0-2 Abs Lymphs 2.2 1.0-4.8 Abs Mononuclear 0.7 0-0.8 Abs Grans 4.9 1.5-7.7 Abs Eosinophils 0.2 0-0.6 Abs Basophils 0.1 0-0.2 Laboratory test finding 12/28/2000 Amylase 80 U/L 28-100 Lipase 33 U/L 7-60 Liver Function ([facility]) 12/28/2000 Total Protein 6.8 GM/DL 6.2-8.1 Albumin 4.0 3.6-5.4 Globulin 2.8 2-4 A/G Ratio 1.4 0.9-2 Total Bilirubin 0.3 mg/dL 0.1-1.0 Bilirubin, Direct 0.1 mg/dL 0.0-0.3 Bilirubin, Indirect 0.20 mg/dL 0.1-0.75 Alkaline Phosphatase 46 U/L 30-110 Alt (SGPT) 16 1-40 Ast (Sgot) 17 1-34 Basic Metabolic ([facility]) 12/28/2000 Sodium 139 mmol/L 135-145 Potassium 4.1 3.5-5.0 Chloride 103 mmol/L 95-108 Co2 23.7 21-33 Glucose 77 mg/dL 70-105 BUN 18 6-22 Creatinine 0.7 mg/dL 0.5-1.4 BUN/Creatinin Ratio 25.7 High 8-20 Calcium 9.1 mg/dL 8.7-10.2 1 RESULTS VERIFIED BY REPEAT ANALYSIS 2 RESULTS VERIFIED BY REPEAT ANALYSIS 3 Class 0 (Negative <0.35) Test Performed by: [place] [address] [employer] Operator: Adan Casas M.D. 4 Class 0 (Negative <0.35) Test Performed by: [place] [address] [employer] Bo[employer] Operator: Adan Casas M.D. 5 Class 0 (Negative <0.35) Test Performed by: [place] [address] [employer] Boiler Operator: Adan Casas M.D. 6 Class 0 (Negative <0.35) Test Performed by: [place] [address] [employer]ass Boiler Operator: Adan Casas M.D. 7 Class 0 (Negative <0.35) Test Performed by: [place] [address] [employer]ass Boiler Operator: Adan Casas M.D. 8 Test Performed by: [address] [address] [employer]omass Boiler Operator: Adan Casas M.D. 9 Critical Result LACT:2.8 Called to at: 21:34:13 by:[id number] Read back by: 10 Because ethnic data is not always readily available, this report includes an eGFR for both -Americans and non- Americans. The National Kidney Disease Education Program (NKDEP) does not endorse the use of the MDRD equation for patients that are not between the ages of 18 and 70, are , have extremes of body size, muscle mass, or nutritional status, or are non- or non-. According to the National Kidney Foundation, irrespective of diagnosis, the stage of the disease is based on the level of kidney function: Stage Description GFR(mL/min/1.73 m(2)) 1 Kidney damage with normal or decreased GFR 90 2 Kidney damage with mild decrease in GFR 60-89 3 Moderate decrease in GFR 30-59 4 Severe decrease in GFR 15-29 5 Kidney failure <15 (or dialysis) 11 Reference Range and Interpretation: TnI (ng/mL) Interpretation Less Than 0.03 ng/mL Not supportive of diagnosis of [place] 0.03 - 0.50 ng/mL Indeterminate: suggest serial studies if clinically indicated. Greater than 0.5 ng/mL Consistent with diagnosis of [place] 12 [MG] affected by ICTERUS 13 Because ethnic data is not always readily available, this report includes an eGFR for both -Americans and non- Americans. The National Kidney Disease Education Program (NKDEP) does not endorse the use of the MDRD equation for patients that are not between the ages of 18 and 70, are , have extremes of body size, muscle mass, or nutritional status, or are non- or non-. According to the National Kidney Foundation, irrespective of diagnosis, the stage of the disease is based on the level of kidney function: Stage Description GFR(mL/min/1.73 m(2)) 1 Kidney damage with normal or decreased GFR 90 2 Kidney damage with mild decrease in GFR 60-89 3 Moderate decrease in GFR 30-59 4 Severe decrease in GFR 15-29 5 Kidney failure <15 (or dialysis) 14 Not diagnostic. Supplemental testing ordered by reflex. Test Performed by: [facility] - [address] [address] [employer]omass Boiler Operator: Ashish Jackson III, M.D. 15 No bands detected 16 Consistent with early infection with Borrelia burgdorferi. A new serum specimen should be submitted in 14-21 days to demonstrate seroconversion of IgG. IgM blot criteria is of diagnostic utility only during the first 4 weeks of early Lyme disease. CDC criteria require >=5 bands for IgG or >=2 bands for IgM for the Immunoblot to be considered positive. Bands (e.g.,p41) may be detected in patients without Lyme disease, and patterns not meeting the CDC criteria should be interpreted with caution. Immunoblot should be ordered only on specimens that are positive or equivocal by a FDA-licensed Lyme disease antibody screening test (e.g., EIA). Test Performed by: [facility] - [address] [address] Biomass Boiler Operator: Ashish Jackson III, M.D. 17 RUN DATE: 12/10/12 [facility] LAB LIVE PAGE 1 RUN TIME: [address] [place] [id number] Specimen Inquiry Name: BAM JOHNSON : [address]: Ra Arevalo MD Acct: [id number] Unit: [id number] AGE: 52 Location: ED Re12/06/12 SEX: F Status: DEP ER SPEC: [id number] JANNETH: 12/06/[address] [facility] [address]: Ra Arevalo MD REQ: [id number] RECD: 12/06/12 STATUS: ABEL GRAY DR: Abdiaziz Ernandez MD _ SOURCE: CSF SPDESC: ORDERED: CSF Cult/GS Procedure Result Verified Site CSF Gram Stain Final 12/07/12- 0743 ML No Polys Observed No Organisms Seen Preparation By Cytospin Smear CSF Culture Final 12/10/12- 921 ML No Growth Day 4 END OF REPORT * ML=Testing performed at Main Lab DEPARTMENT OF PATHOLOGY, [address] [place] [address] Jose Miguel Cary M.D. Director [facility] Permit #[id number] Slide and differential reviewed. No bacteria, blasts or other malignant cells seen. REVIEWED BY JOSE MIGUEL CARY MD 19 Lyme Disease Ab IgG <1:4 Lyme Disease Ab IgM <1:1 ANTIBODY NOT DETECTED REFERENCE RANGES: IgG <1:4 IgM <1:1 Diagnosis of infections of the central nervous system can be done by demonstrating the presence of intrathecally-produced specific antibody. However, interpreting results is complicated by low antibody levels found in CSF, passive transfer of antibody from blood, and contamination via bloody taps. The interpretation of CSF results must consider CSF-serum antibody ratios to the infectious agent. However, demonstration of class specific antibody IgM in CSF may be diagnostic. The intrathecal synthesis of Lyme disease antibody is most accurately measured by performing the Lyme Disease Antibody Index for IRONWORKER MACHINE OPERATOR Infection. This assay was developed and its performance characteristics have been determined by [employer]. It has not been cleared or approved by the U.S. Food and Drug Administration. The FDA has determined that such clearance or approval is not necessary. Performance characteristics refer to the analytical performance of the test. Test Performed by: [address] [address] Biomass Boiler Operator: Ashish Jackson III, M.D. 20 This test detects intact HCG only and is indicated for the early detection of . 21 Because ethnic data is not always readily available, this report includes an eGFR for both -Americans and non- Americans. The National Kidney Disease Education Program (NKDEP) does not endorse the use of the MDRD equation for patients that are not between the ages of 18 and 70, are , have extremes of body size, muscle mass, or nutritional status, or are non- or non-. According to the National Kidney Foundation, irrespective of diagnosis, the stage of the disease is based on the level of kidney function: Stage Description GFR(mL/min/1.73 m(2)) 1 Kidney damage with normal or decreased GFR 90 2 Kidney damage with mild decrease in GFR 60-89 3 Moderate decrease in GFR 30-59 4 Severe decrease in GFR 15-29 5 Kidney failure <15 (or dialysis) 22 Comment: b Comment: d 23 Comment: b Comment: d 24 2+ (>10-30 /hpf) 25 RUN DATE: 12/08/12 [facility] LAB LIVE PAGE 1 RUN TIME: [address] [place], [place] [address] Specimen Inquiry Name: BAM JOHNSON : [address]: Ra Arevalo MD Acct: [id number] Unit: [id number] AGE: 52 Location: ED Re12/06/12 SEX: F Status: DEP ER SPEC: [id number] JANNETH: 12/06/12-[address] [facility] [address]: Ra Arevalo MD REQ: [id number] RECD: 12/06/12 STATUS: ABEL GRAY DR: Abdiaziz Ernandez MD _ SOURCE: URINE SPDESC: ORDERED: Urine Culture Procedure Result Verified Site Urine Culture Final 12/08/12- 1104 ML No Growth Day 2 (<1,000 CFU/mL) END OF REPORT * ML=Testing performed at Main Lab DEPARTMENT OF PATHOLOGY, [address] [place] [address] Jose Miguel Cary M.D. Director [facility] Permit #[id number] 26 Anion gap measurement may be of limited value in the presence of any alkalosis, especially in a combined acid base disorder. . 27 Note change in reference range as of 02/10/08. The change was based on recommendations from the [place] [employer]. 28 Because ethnic data is not always readily available, this report includes an eGFR for both -Americans and non- Americans. The National Kidney Disease Education Program (NKDEP) does not endorse the use of the MDRD equation for patients that are not between the ages of 18 and 70, are , have extremes of body size, muscle mass, or nutritional status, or are non- or non-. According to the National Kidney Foundation, irrespective of diagnosis, the stage of the disease is based on the level of kidney function: Stage Description GFR(mL/min/1.73 m(2)) 1 Kidney damage with normal or decreased GFR 90 2 Kidney damage with mild decrease in GFR 60-89 3 Moderate decrease in GFR 30-59 4 Severe decrease in GFR 15-29 5 Kidney failure <15 (or dialysis) 29 ---- RUN DATE: 03/28/10 [facility] NMI LIVE PAGE 1 RUN TIME: 1156 Specimen Inquiry RUN USER: INTERFACE -- Name: BAM JOHNSON Status: REG REF Re03/28/10 Age/Sex: 49/F Unit#: [id number] Location: THYROID : 56 -- Specimen: [id number] SOUT Spec Date: 03/28/10 [facility] Dr: Raghu garcía MD Spec Type: CYTOLOGY Received: 03/28/104113 Copies to: Ellis Ernandez MD SOURCE FINE NEEDLE ASPIRATION Thyroid, left inferior, US guided. PATIENT INFORMATION ACTUAL COLLECTION DATE: 03/28/10 PATIENT HISTORY: left inferior nodule 2.7x 1.7x 1.7cm GROSS DESCRIPTION 2 alcohol fixed slide(s). 1 pass. Needle rinse in Cytolyt solution for cell block. IMMEDIATE INTERPRETATION adequate specimen. DIAGNOSIS Thyroid, left inferior, US guided fine needle aspirate: Benign thyroid nodule, colloid type (see comment). COMMENT The specimen demonstrates abundant watery colloid, a moderate amount of benign appearing follicular epithelium arranged in uniform sheets, medium sized follicles and only occasional small groups. No features of papillary carcinoma are seen. In this clinical setting the risk of malignancy is less than 3%. Clinical management of this thyroid nodule should be based on clinical and radiographic features as well as the above. A cell block was prepared in the evaluation of this specimen. Final Interpretation electronically signed by: MK HAYES 03/28/10 1156 -- DEPARTMENT OF PATHOLOGY, [address] [place] [address] [facility] Permit #[id number] Jose Miguel Cary M.D. Director Mk Hayes M.D. Oil Heater Operator Dir marianne -- 30 ---- RUN DATE: 03/28/10 [facility] NMI LIVE PAGE 1 RUN TIME: 1154 Specimen Inquiry RUN USER: INTERFACE -- Name: BAM JOHNSON Status: REG REF Re03/28/10 Age/Sex: 49/F Unit#: [id number] Location: THYROID : 56 -- Spec[id number] Spec Date: 03/28/[address]: Raghu garcía MD Spec Type: CYTOLOGY Received: 03/28/10 Copies to: Ellis Ernandez MD SOURCE FINE NEEDLE ASPIRATION Thyroid, right inferior, US guided. PATIENT INFORMATION ACTUAL COLLECTION DATE: 03/28/10 PATIENT HISTORY: right inferior nodule 3.1x 1.5x 2.1cm GROSS DESCRIPTION 6 alcohol fixed slide(s). 2 passes. Needle rinse in Cytolyt solution for cell block. IMMEDIATE INTERPRETATION adequate specimen. DIAGNOSIS Thyroid, right inferior, US guided fine needle aspirate: Benign thyroid nodule, involutional type (see comment). COMMENT The specimen demonstrates abundant watery proteinaceous fluid, and rare follicular cells. Abundant pigmented and non-pigmented macrophages are seen in the background. No features of papillary carcinoma are seen. In this clinical setting the risk of malignancy is less than 3%. Clinical management of this thyroid nodule should be based on clinical and radiographic features as well as the above findings. A cell block was prepared in the evaluation of this specimen. Final Interpretation electronically signed by: MK HAYES 03/28/10 1154 -- -- DEPARTMENT OF PATHOLOGY, [address] [place] [address] [facility] Permit #[id number] Ajit Verma M.D. Oil Heater Operator Dir marianne -- 31 Negative: <20 Borderline: 20 - 25 Positive: >25 32 ---- RUN DATE: 07/24/09 [facility] NMI LIVE PAGE 1 RUN TIME: 1536 Specimen Inquiry RUN USER: INTERFACE -- Name: BAM JOHNSON Status: REG REF Re07/23/09 Age/Sex: 48/F Unit#: [id number] Location: [facility]. : 58 -- Specimen: [id number] SOUT Spec Date: 07/23/[address]: Avinash puga MD Spec Type: SURGICAL P Received: 07/23/09-8893 Copies to: Abdiaziz Ernandez MD SPECIMEN RANDOM COLON BIOPSIES HISTORY CLINICAL INFORMATION: Constipation; screening GROSS DESCRIPTION The specimen is received in formalin labelled Bam Johnson, Random Colon Biopsies, and consists of multiple zhao, soft tissue fragments measuring 0.6 x 0.4 x 0.1 cm. Submitted entirely, one cassette. DIAGNOSIS Colon, random biopsies: Large intestinal mucosa with no significant pathologic abnormality. Signed Electronically by: JOSE MIGUEL CARY MD 07/24/09 1532 -- -- DEPARTMENT OF PATHOLOGY, [address] [place] [address] [facility] Permit #[id number] Jose Miguel Cary M.D. Director Mk Hayes M.D. Oil Heater Operator Dir marianne -- 33 SDS 04/04 34 Anion gap measurement may be of limited value in the presence of any alkalosis, especially in a combined acid base disorder. . 35 Note change in reference range as of 02/10/08. The change was based on recommendations from the [place] [employer]. 36 Please note change in reference range effective 07 . 37 Because ethnic data is not always readily available, this report includes an eGFR for both -Americans and non- Americans. The National Kidney Disease Education Program (NKDEP) does not endorse the use of the MDRD equation for patients that are not between the ages of 18 and 70, are , have extremes of body size, muscle mass, or nutritional status, or are non- or non-. According to the National Kidney Foundation, irrespective of diagnosis, the stage of the disease is based on the level of kidney function: Stage Description GFR(mL/min/1.73 m(2)) 1 Kidney damage with normal or decreased GFR 90 2 Kidney damage with mild decrease in GFR 60-89 3 Moderate decrease in GFR 30-59 4 Severe decrease in GFR 15-29 5 Kidney failure <15 (or dialysis) 38 FASTING 39 RESULT ROSALVA'D 40 ---- RUN DATE: 09/21/08 [facility] NMI LIVE PAGE 1 RUN TIME: 1051 Specimen Inquiry RUN USER: INTERFACE -- Name: BAM JOHNSON Status: REG REF Re09/21/08 Age/Sex: 48/F Unit#: [id number] Location: THYROID : 58 -- Specimen: [id number] SOUT Spec Date: 09/21/08 [facility] Dr: Axel hines MD Spec Type: CYTOLOGY Received: 09/21/08-0079 Copies to: Ellis Ernandez MD SOURCE FINE NEEDLE ASPIRATION LEFT THYROID PATIENT INFORMATION ACTUAL COLLECTION DATE: 09/21/08 PATIENT HISTORY: LEFT THYROID NODULE 2.0 X 1.7 X 1.9CM GROSS DESCRIPTION Needle rinse in Cytolyt solution for cell block. IMMEDIATE INTERPRETATION Adequate specimen. DIAGNOSIS Left thyroid, US guided FNA: Benign colloid nodule. COMMENT The specimen demonstrates abundant watery and hard colloid and a modest amount of benign appearing follicular epithelium arranged in uniform sheets, medium sized follicles and only occasional small groups. No features of papillary carcinoma are seen. In this clinical setting the risk of malignancy is less than 3%. Clinical management of this thyroid nodule should be based on clinical and radiographic features as well as the above. A cell block was prepared in the evaluation of this specimen. Final Interpretation electronically signed by: MK HAYES 09/21/08 1051 -- -- DEPARTMENT OF PATHOLOGY, [address] [place] [address] [facility] Permit #[id number] Jose Miguel Cary M.D. Director kM Hayes M.D. Oil Heater Operator Dir lopes -- 41 ---- RUN DATE: 09/21/08 [facility] NMI LIVE PAGE 1 RUN TIME: 1043 Specimen Inquiry RUN USER: INTERFACE -- Name: BAM JOHNSON Status: REG REF Re09/21/08 Age/Sex: 48/F Unit#: [id number] Location: THYROID : 58 -- Specimen: [id number] SOUT Spec Date: 09/21/08 [facility] Dr: Axel hines MD Spec Type: CYTOLOGY Received: 09/21/080449 Copies to: Ellis Ernandez MD SOURCE FINE NEEDLE ASPIRATION RIGHT THYROID PATIENT INFORMATION ACTUAL COLLECTION DATE: 09/21/08 PATIENT HISTORY: RIGHT THYROID NODULE 1.8 X 1.0 X 1.2CM GROSS DESCRIPTION Needle rinse in Cytolyt solution for cell block. IMMEDIATE INTERPRETATION Adequate specimen. DIAGNOSIS Right thyroid, US guided FNA: Benign colloid nodule COMMENT The specimen demonstrates abundant hard and watery colloid, a moderate amount of benign appearing follicular epithelium arranged in uniform sheets, medium sized follicles and only occasional small groups. No features of papillary carcinoma are seen. In this clinical setting the risk of malignancy is less than 3%. Clinical management of this thyroid nodule should be based on clinical and radiographic features as well as the above. A cell block was prepared in the evaluation of this specimen. Final Interpretation electronically signed by: MK HAYES 09/21/08 1043 -- -- DEPARTMENT OF PATHOLOGY, [address] [place] [address] [facility] Permit #[id number] Jose Miguel Cary M.D. Director Mk Hayes M.D. Oil Heater Operator Dir marianne -- 42 SPECIMEN SLIGHTLY LIPEMIC 43 Anion gap measurement may be of limited value in the presence of any alkalosis, especially in a combined acid base disorder. . 44 Note change in reference range as of 02/10/08. The change was based on recommendations from the [place] [employer]. 45 Please note change in reference range effective 07 . 46 New Reference Range and Interpretation effective 03/25/02 TnI (ng/ml) INTERPRETATION <0.06 ng/ml NOT SUPPORTIVE OF DIAGNOSIS OF [place] 0.06 - 0.50 ng/ml INDETERMINATE: SUGGEST SERIAL STUDIES IF CLINICALLY INDICATED. > 0.5 ng/ml CONSISTENT WITH DIAGNOSIS OF [place] . 47 Anion gap measurement may be of limited value in the presence of any alkalosis, especially in a combined acid base disorder. . 48 Note change in reference range as of 02/10/08. The change was based on recommendations from the [place] [employer]. 49 Please note change in reference range effective 07 . 50 [employer] DEPARTMENT OF PATHOLOGY or Extension 4789 BLOCK INSPECTOR CYTOLOGY REPORT PATIENT: BAM JOHNSON : 1960 AGE: 47 Y SEX: F ACCT: [id number] PROCEDURE DATE: 09/20/2007 DATE RECEIVED: 09/22/2007 REQUESTING PHYSICIAN: PEGGY WANG CNP-F LOCATION: [facility] Case No. [id number] PATIENT DATA: [id number] SPECIMEN SUBMITTED: * * (HPVII) THIN PREP W/HPV (LSIL/ASC/AYAH) * * ENDOCERVICAL RELEVANT HISTORY: LMP: 08/25/2007 Menarche: Y Prev.normal: YEAR AGO SPECIMEN ADEQUACY SATISFACTORY FOR EVALUATION, ENDOCERVICAL TRANSFORMATION ZONE COMPONENT PRESENT GENERAL CATEGORIZATION EPITHELIAL CELL ABNORMALITY: SEE INTERPRETATION/RESULT INTERPRETATION/ RESULT ATYPICAL SQUAMOUS CELLS OF UNDETERMINED SIGNIFICANCE. RECOMMENDATIONS Follow-up as clinically indicated. Refer to separate report for HPV test results. ADDITIONAL COPIES SENT TO: Screened/Rescreened by: Electronically Signed by: CJNigel BANSAL, PATHOLOGIST Signed Date 09/24/2007 12:59 Thin Prep Pap tests are examined with an FDA-approved location-guidance system (77606). Performed @ [facility] [address] [place] [id number] 51 The following test(s) has been cancelled with a brief explanation for the cancellation: HPV. Insufficient quantity of cellular material for testing. Office notified. 52 ---- RUN DATE: 08/02/07 [facility] NMI LIVE PAGE 1 RUN TIME: 1616 Specimen Inquiry RUN USER: INTERFACE [id number] BAM JOHNSON 46/F <REG REF 07/30> ([id number]) ROXANN Avelar MD,Avinash Bennett -- Specimen: [id number] SOUT Spec Date: 07/30/[address]: Avinash puga MD Spec Type: SURGICAL P Received: 07/30/07-4766 Copies to: Abdiaziz Ernandez MD SPECIMEN RANDOM DUODENAL BIOPSIES HISTORY CLINICAL INFORMATION: Patient with complaint of chest pain and burning mi d chest GROSS DESCRIPTION The specimen is received in formalin labelled Bam Johnson, Random Duodenal Biopsies, and consists of multiple, hzao-reis, soft tissue fragments measuring 0.4 x 0.2 x 0.1 cm. in aggregate. Submitted entirely, one cassette. DIAGNOSIS Small bowel, random duodenal biopsies - Small bowel mucosa with normal villous architecture and no significant pathologic abnormality. Signed Electronically by: JOSE MIGUEL CARY MD 08/02/07 1615 -- -- DEPARTMENT OF PATHOLOGY, [address] [place] [address] [facility] Permit #[id number] Jose Miguel Cary M.D. Director of Laboratories -- 53 FASTING 54 AYDEN VALUE=2.00 ( OF 04/07/06) Recommended INR for Patients on Oral Anticoagulants Prophylaxis 2.0 - 3.0 Treatment of thrombosis 2.0 - 3.0 Prevention of embolism 2.0 - 3.0 Prevention of embolism from prosthetic heart valves 2.5 - 3.5 55 PLEASE NOTE NEW REFERENCE RANGE EFFECTIVE 05 56 Anion gap measurement may be of limited value in the presence of any alkalosis, especially in a combined acid base disorder. . 57 New Reference Range and Interpretation effective 03/25/02 TnI (ng/ml) INTERPRETATION <0.06 ng/ml NOT SUPPORTIVE OF DIAGNOSIS OF [place] 0.06 - 0.50 ng/ml INDETERMINATE: SUGGEST SERIAL STUDIES IF CLINICALLY INDICATED. > 0.5 ng/ml CONSISTENT WITH DIAGNOSIS OF [place] . 58 Negative for high/intermediate risk HPV types 16/18/31/33/35/39/45/51/52/56/58/59/68 59 Negative for high/intermediate risk HPV types 16/18/31/33/35/39/45/51/52/56/58/59/68 60 . hs-CRP Result (mg/L) Risk Level <1.0 Low 1.0-3.0 Average >3.0 High Patients with persistently unexplained, marked elevation of hs-CRP (greater than 10 mg/L) after repeated testing should be evaluated for non-cardiovascular etiologies. . 61 (Performed by Enzyme Immunoassay, EIA) Procedures Date CPT Code Description Status 01/27/2018 Mammogram Completed 08/05/2016 Mammogram Completed 07/11/2016 50371 Pulse Oximetry Completed 01/14/2016 98411 Dxa Bone Density Study One Or More Sites Axial Skeleton Completed 07/04/2015 Mammogram Completed 01/24/2014 Mammogram Completed 10/28/2013 Bone Mineral Density Test Completed 10/28/2013 51460 Dxa Bone Density Vertebarl FX Assessment Completed 10/28/2013 16576 Dxa Bone Density Study One Or More Sites Axial Skeleton Completed 06/29/2013 71568 Pulse Oximetry Completed 09/30/2012 60141 Nebulizer Treatment Completed 08/11/2012 95471 Dxa Bone Density Vertebarl FX Assessment Completed 08/11/2012 74337 Dxa Bone Density Study One Or More Sites Axial Skeleton Completed 01/16/2011 10321 Electrocardiogram Complete Completed 05/13/2010 54538 Electrocardiogram Complete Completed 03/06/2010 Mammogram Completed 07/23/2009 Colonoscopy Completed 12/11/2008 Mammogram Completed 07/10/2008 55957 Event Monitoring Cardiac,interpretation Completed 03/28/2008 77147 Pulse Oximetry Completed 06/08/2007 Mammogram Completed 08/23/2005 89640 Pulse Oximetry Completed 06/06/2003 10172 Nebulizer Treatment Completed 06/06/2003 09132 Spirometry Completed 05/25/2003 51329 Electrocardiogram Complete Completed 07/22/2000 77711 Pulse Oximetry Completed Encounters Type Date Location Provider CPT E/M Dx Office Visit 12/15/2017 6:20p Main Office Abdiaziz Ernandez M.D. 47933 G47.33 G31.84 E04.2 M79.642 Office Visit 10/02/2017 10:40a [facility] Abdiaziz Ernandez M.D. 22347 G47.33 G31.84 R20.2 E55.9 Office Visit 07/09/2017 3:45p [facility] YENNY Cash 90754 R05 Office Visit 04/30/2017 3:30p [facility] YENNY Cash 75103 F32.89 M25.549 M79.672 M79.671 Office Visit 10/24/2016 1:00p [facility] Office Abdiaziz Ernandez M.D. 40719 E04.2 G47.33 M85.9 F32.89 G56.03 I34.0 G43.009 Z00.00 R82.99 Office Visit 07/11/2016 8:20a [facility] Abdiaziz Ernandez M.D. 00174 R05 E04.2 L60.0 Office Visit 05/10/2016 9:45a Main Office Tiffani Wang [facility] 18576 R05 Office Visit 11/09/2015 4:00p Main Office Tiffani Wang [facility] 55853 J06.9 Office Visit 05/15/2015 4:20p Main Office Abdiaziz Ernandez M.D. 30825 R63.5 M85.89 R00.2 E04.2 Z23 Office Visit 12/27/2014 2:30p Main Office Tiffani Wang [employer] 32655 789.09 784.7 Office Visit 05/11/2014 9:40a Main Office Abdiaziz Ernandez M.D. 67724 724.2 Office Visit 03/03/2014 4:00p [facility] Abdiaziz Ernandez M.D. 36334 989.5 Office Visit 01/02/2014 3:20p [facility] Abdiaziz Ernandez M.D. 83776 733.90 272.2 850.9 327.23 Office Visit 06/29/2013 5:00p Main Office Venus Ortega, Steve-C 78413 465.9 787.03 Office Visit 01/26/2013 9:00a Main Office Tiffani Wang [facility] 56542 v05.3 723.1 Office Visit 12/08/2012 10:15a [facility] Karely Mcneil, Afnp-C 31438 088.81 Office Visit 09/30/2012 6:00p Main Office Samantha Chago, [employer] 57595 079.99 466.0 786.2 Office Visit 06/28/2012 7:15p Main Office Tiffani Wang [employer] 79717 724.1 719.44 Office Visit 02/19/2012 1:00p [facility] Tiffani Wang [facility] 89906 719.41 309.0 Office Visit 01/16/2011 9:00a Main Office Abdiaziz Ernandez M.D. 76061 786.59 Office Visit 09/20/2010 4:00p Main Office Tiffani Wang, [facility] 66434 785.6 Office Visit 09/09/2010 9:10a Main Office Narinder Robertson M.D. 48726 785.6 465.9 Office Visit 05/13/2010 1:00p Main Office Tiffani Wang, [facility] 74956 780.57 Office Visit 03/23/2010 10:45a Main Office Terri Patterson M.D. 88611 240.9 Office Visit 02/26/2010 12:00p Main Office Abdiaziz Ernandez M.D. 42863 240.9 715.09 780.79 V06.5 v06.5 Office Visit 12/05/2009 4:00p [facility] Tiffani Wang [facility] 70789 715.09 Office Visit 08/23/2009 10:20a Main Office Abdiaziz Ernandez M.D. 27125 784.0 240.9 785.0 780.79 724.2 Office Visit 05/24/2009 8:20a Main Office Abdiaziz Ernandez M.D. 97696 784.0 240.9 785.0 787.91 724.2 729.5 Office Visit 01/31/2009 2:00p [facility] Office KIMBERLY CashP 12013 784.0 780.60 Office Visit 11/20/2008 2:20p [facility] Abdiaziz Ernandez M.D. 10188 240.9 785.0 787.91 627.1 Office Visit 08/08/2008 9:00a Main Office Abdiaziz Ernandez M.D. 00259 785.0 786.50 240.9 Office Visit 07/04/2008 1:40p Main Office Adbiaziz Ernandez M.D. 50997 785.0 240.9 Office Visit 03/28/2008 8:30p Main Office Carrie Buchanan 79638 079.99 Office Visit 11/13/2007 12:50p Main Office Narinder Robertson M.D. 90406 724.2 780.6 782.1 Office Visit 09/20/2007 6:30p Main Office Tiffani Wang [facility] 70666 V72.31 Office Visit 07/28/2007 11:00a [facility] Office Glen Wyatt M.D. 33043 789.07 Office Visit 05/17/2007 1:50p [facility] Office Abdiaziz Ernandez M.D. 67227 786.50 Office Visit 03/08/2007 7:15p Main Office Carrie Patel 28264 465.9 Office Visit 12/05/2006 10:30a Main Office Tiffani Wang [facility] 75632 466.0 Office Visit 08/14/2006 2:00p Main Office Tiffani Wang [facility] 22470 625.6 715.04 389.9 346.10 Office Visit 03/12/2006 6:40p Main Office Abdiaziz Ernandez M.D. 01474 346.10 Office Visit 02/06/2006 4:30p Main Office Tiffani Wang, [facility] 36766 462 459.89 Office Visit 01/26/2006 7:15p Main Office Tiffani Wang [facility] 05296 346.10 Office Visit 12/31/2005 2:30p Main Office Tiffani Wang, [facility] 61159 795.03 789.30 Office Visit 08/23/2005 10:30a [facility] Office Glen Wyatt M.D. 95960 466.0 Office Visit 08/18/2005 7:30p Main Office Tiffani Wang, [facility] 66785 V72.31 Office Visit 07/29/2005 8:00p Main Office Abdiaziz Ernandez M.D. 40795 530.81 493.90 300.00 346.10 Office Visit 02/18/2005 9:30a [facility] Office Carrie Patel 16743 553.8 Office Visit 09/18/2004 10:45a Main Office Carrie Patel 15381 490 465.9 Office Visit 05/21/2004 3:45p Main Office TRUNG Mitchell 60490 465.9 786.09 Office Visit 10/19/2003 11:45a Main Office Abdiaziz Ernandez M.D. 57325 493.90 786.50 Office Visit 09/12/2003 8:45p Main Office Abdiaziz Ernandez M.D. 95477 786.50 786.05 Office Visit 08/15/2003 11:30a Main Office Abdiaziz Ernandez M.D. 53904 786.50 Office Visit 07/04/2003 7:30p Main Office Abdiaziz Ernandez M.D. 00072 728.9 Office Visit 05/25/2003 11:00a Main Office Abdiaziz Ernandez M.D. 17546 423.9 Office Visit 04/24/2003 6:00p Main Office TRUNG Mitchell 21270 493.90 530.11 Office Visit 03/24/2003 1:15p Main Office TRUNG Mitchell 58946 493.90 Office Visit 12/20/2002 3:15p [facility] Venus Carrie Ortega 86711 719.45 300.00 Office Visit 03/05/2002 12:15p Main Office Carrie Buchanan 68511 Office Visit 02/10/2002 12:20p Main Office Abdiaziz Ernandez M.D. 99707 Office Visit 01/20/2002 12:10p Main Office Abdiaziz Ernandez M.D. 93351 Office Visit 03/11/2001 11:00a Main Office Abdiaizz Ernandez M.D. 17210 Office Visit 01/19/2001 9:00a Main Office YENNY Cash 71049 Office Visit 07/22/2000 2:00p Main Office Carrie Buchanna 18764 Plan of Care 03/13/2018 - Samantha Anders, [id number] Cellulitis of faceNew Medication: Cephalexin 500 mgComments:antibiotics, warm compressesok to use Tylenol or ibuprofen as directed on bottle for comfortcall ALEJO if condition changes/ worsens in any wayAllComments:~B_~U_Medication Management~b_~u_ Patient Understands medications he 's taking? Yes No Are there Barriers to Adherence? Yes No Has the patient been asked about herbal supplements and therapies, and OTC meds? Yes No As always, we strongly encourage a healthy diet and makingphysical activity a part of your every day life. If you have questions about how or where to start, please contact the office.
[2018-03-14 17:35] VITALS: BP 126/71
--- NOTE | 2018-03-20 06:55 | ED ---
Skin Complaint - History of Current Complaint Chief Complaint: EDRashSkinAbscess Time Seen by Provider: 03/14/18 15:57 Stated Complaint: LUMP ON FACE Pain Intensity: 5 Pain Scale Used: 0-10 Numeric - Allergy/Home Medications Allergies/Adverse Reactions: Allergies Allergy/AdvReac Type Severity Reaction Status Date / Time bee venom protein (honey bee) Allergy Anaphylatic Verified 03/14/18 14:26 Shock PMH/Surg Hx/FS Hx/Imm Hx Endocrine/Hematology History: Denies: Hx Diabetes, Hx Thyroid Disease Cardiovascular History: Reports: Other Cardiovascular Problems/Disorders - 2 "LEAKING" HEART VALVES Denies: Hx Hypercholesterolemia, Hx Hypertension - HYPOTENSION, Hx Pacemaker/ ICD, Hx Peripheral Vascular Disease Respiratory History: Reports: Other Respiratory Problems/Disorders - HX BRONCHITIS History: Denies: Hx Renal Disease Musculoskeletal History: Denies: Hx Arthritis, Hx Rheumatoid Arthritis, Hx Osteoporosis, Hx Scoliosis Sensory History: Reports: Hx Contacts or Glasses Denies: Hx Cataracts, Hx Glaucoma, Hx Hearing Aid Opthamlomology History: Reports: Hx Contacts or Glasses Denies: Hx Cataracts, Hx Glaucoma Neurological History: Reports: Other Neuro Impairments/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 Denies: Hx Headaches Psychiatric History: Denies: Hx Anxiety, Hx Depression, Hx Panic Disorder - Cancer History Cancer Type, Location and Year: SKIN CANCER Hx Chemotherapy: No Hx Radiation Therapy: No - Surgical History Surgery Procedure, Year, and Place: hysterectomy, lipoma x2 REMOVAL, laproscopic Infectious Disease History: No Infectious Disease History: Reports: Traveled Outside the [place] in Last 30 Days - [place], [place], formerly [facility] - Social History Alcohol Use: Rare Hx Substance Use: No Substance Use Type: Reports: None Hx Tobacco Use: No Smoking Status (MU): Never Smoked Tobacco Physical Exam Vital Signs On Initial Exam: Initial Vitals Temp Pulse Resp BP Pulse Ox 98.2 F 70 14 127/78 98 03/14/18 14:26 03/14/18 14:26 03/14/18 14:26 03/14/18 14:26 03/14/18 14:26 Diagnostics - Vital Signs Vital Signs Temp Pulse Resp BP Pulse Ox 03/14/18 17:33 97.4 F 60 18 126/71 96 03/14/18 14:26 98.2 F 70 14 127/78 98 - Laboratory Lab Statement: Any lab studies that have been ordered have been reviewed, and results considered in the medical decision making process. Discharge - Discharge Plan Condition: Stable Disposition: HOME Patient Education Materials: Parotid Duct Obstruction (ED), Sialoadenitis (ED) Referrals: Abdiaziz Ernandez MD [Primary Care Provider] - Additional Instructions: As discussed, this may be secondary to sialadenitis or a parotid duct obstruction. I have given you information. Tart candies and drinking plenty of fluids may help Continue with her antibiotic As discussed, if he develop any worsening symptoms, redness or warmth over the area, return to the ED immediately - Billing Disposition and Condition Condition: STABLE Disposition: Home
--- NOTE | 2018-03-20 06:55 | ED ---
Throat Pain/Nasal Congestion - HPI Summary HPI Summary: Patient is a 57-year-old female presenting to the ED with a chief complaint of left "lump" just anterior to the left ear. She states her symptoms were present yesterday and she was seen by her PCP who gave her antibiotics and was told to come to the ED if any symptoms worsen. She states when she awoke this morning the lump was much larger in size but decreased quickly [employer]. The lump is hard, nonfluctuant, slightly tender without erythema or warmth. She is able to eat and drink okay, denies any dysphagia or odynophagia. Denies any symptoms of drainage. Denies any dentures or feeling dehydrated. This is never happened to her before. She denies any fevers, sweats, chills. Denies any symptoms of tinnitus or decreased hearing. - History of Current Complaint Chief Complaint: EDRashSkinAbscess Time Seen by Provider: 03/14/18 15:57 Hx Obtained From: Patient Onset/Duration: Sudden Onset Severity: Moderate Associated Signs And Symptoms: Negative: Dysphagia, FB Sensation, Drooling, Wheezing, Sinus Discomfort, Nasal Discharge - Epiglottits Risk Factors Epiglottis Risk Factors: Negative - Allergies/Home Medications Allergies/Adverse Reactions: Allergies Allergy/AdvReac Type Severity Reaction Status Date / Time bee venom protein (honey bee) Allergy Anaphylatic Verified 03/14/18 14:26 Shock PMH/Surg Hx/FS Hx/Imm Hx Previously Healthy: Yes Endocrine/Hematology History: Denies: Hx Diabetes, Hx Thyroid Disease Cardiovascular History: Reports: Other Cardiovascular Problems/Disorders - 2 "LEAKING" HEART VALVES Denies: Hx Hypercholesterolemia, Hx Hypertension - HYPOTENSION, Hx Pacemaker/ ICD, Hx Peripheral Vascular Disease Respiratory History: Reports: Other Respiratory Problems/Disorders - HX BRONCHITIS History: Denies: Hx Renal Disease Musculoskeletal History: Denies: Hx Arthritis, Hx Rheumatoid Arthritis, Hx Osteoporosis, Hx Scoliosis Sensory History: Reports: Hx Contacts or Glasses Denies: Hx Cataracts, Hx Glaucoma, Hx Hearing Aid Opthamlomology History: Reports: Hx Contacts or Glasses Denies: Hx Cataracts, Hx Glaucoma Neurological History: Reports: Other Neuro Impairments/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 Denies: Hx Headaches Psychiatric History: Denies: Hx Anxiety, Hx Depression, Hx Panic Disorder - Cancer History Cancer Type, Location and Year: SKIN CANCER Hx Chemotherapy: No Hx Radiation Therapy: No - Surgical History Surgery Procedure, Year, and Place: hysterectomy, lipoma x2 REMOVAL, laproscopic - Immunization History Hx Pertussis Vaccination: No Immunizations Up to Date: Yes Infectious Disease History: No Infectious Disease History: Reports: Traveled Outside the [place] in Last 30 Days - [place], [place], [employer] [place] - Social History Occupation: Employed Full-time Lives: With Family Alcohol Use: Rare Hx Substance Use: No Substance Use Type: Reports: None Hx Tobacco Use: No Smoking Status (MU): Never Smoked Tobacco Review of Systems Constitutional: Negative Negative: Fever, Chills, Fatigue, Skin Diaphoresis Positive: Other - mass to the anterior portion of the L ear Negative: Palpitations, Chest Pain Genitourinary: Negative Positive: no symptoms reported, see HPI Negative: Arthralgia, Myalgia Negative: Rash, Bruising Neurological: Negative All Other Systems Reviewed And Are Negative: Yes Physical Exam Triage Information Reviewed: Yes Vital Signs On Initial Exam: Initial Vitals Temp Pulse Resp BP Pulse Ox 98.2 F 70 14 127/78 98 03/14/18 14:26 03/14/18 14:26 03/14/18 14:26 03/14/18 14:26 03/14/18 14:26 Vital Signs Reviewed: Yes Appearance: Positive: Well-Appearing, Well-Nourished Skin: Positive: Warm, Skin Color Reflects Adequate Perfusion Head/Face: Positive: Normal Head/Face Inspection Eyes: Positive: EOMI, LUZ MARINA, Conjunctiva Clear ENT: Positive: TMs normal. Negative: Nasal congestion, Nasal drainage, Tonsillar swelling, Tonsillar exudate, Sinus tenderness, Uvula midline Neck: Positive: Supple, No Lymphadenopathy Respiratory/Lung Sounds: Positive: Clear to Auscultation, Breath Sounds Present Cardiovascular: Positive: RRR, Pulses are Symmetrical in both Upper and Lower Extremities Musculoskeletal: Positive: Strength/ROM Intact Neurological: Positive: Sensory/Motor Intact - Is much, Alert, Oriented to Person Place, Time, Speech Normal Psychiatric: Positive: Normal, Affect/Mood Appropriate AVPU Assessment: Alert Diagnostics - Vital Signs Vital Signs Temp Pulse Resp BP Pulse Ox 03/14/18 17:33 97.4 F 60 18 126/71 96 03/14/18 14:26 98.2 F 70 14 127/78 98 - Laboratory Lab Statement: Any lab studies that have been ordered have been reviewed, and results considered in the medical decision making process. EENT Course/Dx - Course Course Of Treatment: Patient is evaluated for small 1.5 cm in diameter "lump" to the left side of the face just anterior to the left ear. There is no erythema or warmth surrounding the mass or to the ear posteriorly. There is no mass or erythema inside the mouth. No swelling inside the mouth and patient is able to eat and drink okay. Airway patent. Denies any fevers, sweats, chills. She endorses the area to be slightly tender, much larger this morning and decreased in size just [employer]. She has never had a tonsillar stone and denies any feelings of dehydration. Discussed symptoms and possible differential. Based on the increased severity in size and the rapid decrease in severity is size, this appears to be sialadenitis to the parotid gland. She denies any fevers, sweats, chills, there is no erythema or warmth to the area to suggest a worsening infection. EOMI /PERRLA. Lungs CTA. RRR. TMs without erythema, positive cone of light. No tenderness to the mastoid area. No cervical or post auricular lymphadenopathy. I do not believe she needs a CT maxillofacial this time to further evaluate this mass. She is currently on antibiotics. She will be instructed to add an hard sour candies to aid in decrease of the size of the mass most likely secondary to a parotid stone. She will continue on her antibiotics. If symptoms worsen, she will follow up with ENT physician or return to her PCP. - Diagnoses Provider Diagnoses: Sialadenitis Discharge - Sign-Out/Discharge Documenting (check all that apply): Patient Departure - Discharge Plan Condition: Stable Disposition: HOME Patient Education Materials: Parotid Duct Obstruction (ED), Sialoadenitis (ED) Referrals: Abdiaziz Ernandez MD [Primary Care Provider] - Additional Instructions: As discussed, this may be secondary to sialadenitis or a parotid duct obstruction. I have given you information. Tart candies and drinking plenty of fluids may help Continue with her antibiotic As discussed, if he develop any worsening symptoms, redness or warmth over the area, return to the ED immediately - Billing Disposition and Condition Condition: STABLE Disposition: Home
== END 2018-03-14 17:33 | disposition home or self-care (01) ==
LOC: ED 14:17
DX: K11.20 Sialoadenitis, unspecified (principal)
CPT/HCPCS: 99281

== ENCOUNTER 2018-03-17 18:11 | Emergency (ER) | payer BC ==
[2018-03-17] MEDS ORDERED: Sulfamethox/Trimethoprim DS 800/160* TAB PO ONE (20:10)
--- NOTE | 2018-03-17 20:11 | ED ---
Skin Complaint - HPI Summary HPI Summary: Patient complains of lump on this left side of her face just in front of her ear 1 week. Was given Keflex Thursday by PCP with no improvement. Denies loss of hearing, fever, cough, sore throat, CP, SOB, N/V/D, abdominal pain, change in urine, change in BM. Medical history is sleep apnea. - History of Current Complaint Chief Complaint: EDGeneral Time Seen by Provider: 03/17/18 18:43 Stated Complaint: BUMP ON FACE Hx Obtained From: Patient Onset/Duration: Started Days Ago Timing: Constant Onset Severity: Moderate Current Severity: Moderate Pain Intensity: 3 Pain Scale Used: 0-10 Numeric Skin Location: Discrete, Face Aggravating Symptom(s): Nothing Alleviating Symptom(s): Nothing Associated Signs & Symptoms: Negative - Allergy/Home Medications Allergies/Adverse Reactions: Allergies Allergy/AdvReac Type Severity Reaction Status Date / Time bee venom protein (honey bee) Allergy Anaphylatic Verified 03/14/18 14:26 Shock PMH/Surg Hx/FS Hx/Imm Hx Endocrine/Hematology History: Denies: Hx Diabetes, Hx Thyroid Disease Cardiovascular History: Reports: Other Cardiovascular Problems/Disorders - 2 "LEAKING" HEART VALVES Denies: Hx Hypercholesterolemia, Hx Hypertension - HYPOTENSION, Hx Pacemaker/ ICD, Hx Peripheral Vascular Disease Respiratory History: Reports: Other Respiratory Problems/Disorders - HX BRONCHITIS History: Denies: Hx Renal Disease Musculoskeletal History: Denies: Hx Arthritis, Hx Rheumatoid Arthritis, Hx Osteoporosis, Hx Scoliosis Sensory History: Reports: Hx Contacts or Glasses Denies: Hx Cataracts, Hx Glaucoma, Hx Hearing Aid Opthamlomology History: Reports: Hx Contacts or Glasses Denies: Hx Cataracts, Hx Glaucoma Neurological History: Reports: Other Neuro Impairments/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 Denies: Hx Headaches Psychiatric History: Denies: Hx Anxiety, Hx Depression, Hx Panic Disorder - Cancer History Cancer Type, Location and Year: SKIN CANCER Hx Chemotherapy: No Hx Radiation Therapy: No - Surgical History Surgery Procedure, Year, and Place: hysterectomy, lipoma x2 REMOVAL, laproscopic - Immunization History Immunizations Up to Date: Yes Infectious Disease History: No Infectious Disease History: Reports: Traveled Outside the [place] in Last 30 Days - [place], [place], [place] - Social History Alcohol Use: None Hx Substance Use: No Substance Use Type: Reports: None Hx Tobacco Use: No Smoking Status (MU): Never Smoked Tobacco Review of Systems Constitutional: Negative Eyes: Negative ENT: Negative Cardiovascular: Negative Respiratory: Negative Gastrointestinal: Negative Genitourinary: Negative Musculoskeletal: Negative Skin: Other Neurological: Negative Psychological: Normal All Other Systems Reviewed And Are Negative: Yes Physical Exam - Summary Physical Exam Summary: Abscess in front of left ear 2 cm x 2 cm. No purulent drainage. Positive erythema. No hearing loss. Triage Information Reviewed: Yes Vital Signs On Initial Exam: Initial Vitals Temp Pulse Resp BP Pulse Ox 99.1 F 88 16 130/92 95 18 18:34 03/17/18 18:34 03/17/18 18:34 03/17/18 18:34 03/17/18 18:34 Vital Signs Reviewed: Yes Appearance: Positive: Well-Appearing Skin: Positive: Warm Head/Face: Positive: Normal Head/Face Inspection Eyes: Positive: Normal ENT: Positive: Normal ENT inspection Neck: Positive: Supple Respiratory/Lung Sounds: Positive: Clear to Auscultation Cardiovascular: Positive: Normal Abdomen Description: Positive: Nontender Musculoskeletal: Positive: Normal Neurological: Positive: Normal Psychiatric: Positive: Normal AVPU Assessment: Alert - Gully Coma Scale Best Eye Response: 4 - Spontaneous Best Motor Response: 6 - Obeys Commands Best Verbal Response: 5 - Oriented Coma Scale Total: 15 Procedures - Incision and Drainage 1 Site: left cheek in front of ear Anesthesia: Local Instrument(s): Scalpel Diagnostics - Vital Signs Vital Signs Temp Pulse Resp BP Pulse Ox 03/17/18 18:34 99.1 F 88 16 130/92 95 - Laboratory Lab Statement: Any lab studies that have been ordered have been reviewed, and results considered in the medical decision making process. Course/Dx - Course Course Of Treatment: Patient complains of lump on this left side of her face just in front of her ear 1 week. Was given Keflex Thursday by PCP with no improvement. Denies loss of hearing, fever, cough, sore throat, CP, SOB, N/V/D , abdominal pain, change in urine, change in BM. Medical history is sleep apnea. Physical exam:Abscess in front of left ear 2 cm x 2 cm. No purulent drainage. Positive erythema. No hearing loss. I&D. Rx for Bactrim. Started urine Bactrim. - Diagnoses Provider Diagnoses: Abscess Discharge - Sign-Out/Discharge Documenting (check all that apply): Patient Departure - Discharge Plan Condition: Stable Disposition: HOME Prescriptions: Sulfamethox/Trimethoprim DS* [Bactrim DS 800/160 TAB*] 1 tab PO BID 10 Days #20 tab Patient Education Materials: Abscess (ED), Abscess Follow-up (ED) Referrals: Abdiaziz Ernandez MD [Primary Care Provider] - Additional Instructions: Take antibiotic as directed. May wash with warm running water and soap. Follow -up with primary care. Return to the ED for any new or worsening symptoms - Billing Disposition and Condition Condition: STABLE Disposition: Home
[2018-03-17 20:38] VITALS: BP 128/89
== END 2018-03-17 20:36 | disposition home or self-care (01) ==
LOC: ED 18:11
DX: L02.01 Cutaneous abscess of face (principal)
CPT/HCPCS: 10060; 99282; A9270-GY

== ENCOUNTER 2019-07-11 13:32 | Emergency (ER) | payer BC ==
[2019-07-11 14:01] LABS: ABS Eosinophils 0.1 10^3/ul (0-0.6); ABS Lymphocytes 1.6 10^3/ul (1.0-4.8); ABS Monocytes 0.3 10^3/ul (0-0.8); Eosinophil % 1.5 %; Hematocrit 39 % (35-47); Lymphocyte % 32.9 %; Mean Corpuscular HGB Conc 34 g/dL (31-36); Mean Corpuscular Hemoglobin 28 pg (27-31); Mean Corpuscular Volume 82 fL (80-97); Mean Platelet Volume 8.4 fL (7.4-10.4); Platelet Count 323 10^3/uL (150-450); Red Blood Count 4.68 10^6 /uL (3.70-4.87); Red Cell Distribution Width 14 % (10-15)
--- NOTE | 2019-07-11 14:03 | ED ---
Shortness of Breath - HPI Summary HPI Summary: 58 year old female presents to the ED with a chief complaint of shortness of breath starting several weeks ago. Patient reports an accompanying intermittent sharp left-sided chest pain of severity 4/10, that is not triggered by movement , deep breaths, or activity. She also reports palpitations, nonproductive cough , and back tightness. She denies fever. Patient does not smoke tobacco. History of bronchitis. - History of Current Complaint Chief Complaint: EDChestPainROMI Time Seen by Provider: 07/11/19 13:52 Hx Obtained From: Patient Onset/Duration: Lasting Weeks, Still Present Timing: Intermittent Episodes Lasting: Current Severity: Severe Dyspnea At: Rest Aggravating Factors: Nothing Alleviating Factors: Spontaneous Resolution Associated Signs & Symptoms: Cough (Nonproductive), Chest Pain Unrelated to Cough - Allergy/Home Medications Allergies/Adverse Reactions: Allergies Allergy/AdvReac Type Severity Reaction Status Date / Time bee venom protein (honey bee) Allergy Anaphylatic Verified 07/06/18 11:12 Shock Home Medications: Home Medications Citalopram TAB* [CeleXA TAB*] 40 mg PO DAILY 07/11/19 [History Confirmed ] Magnesium Oxide TAB* [MagOx 400 TAB*] 400 mg PO DAILY 07/11/19 [History Confirmed 07/11/19] Multivitamins/Minerals TAB* [Theragran/minerals TAB*] 1 tab PO DAILY 07/11/19 [ History Confirmed 07/11/19] PMH/Surg Hx/FS Hx/Imm Hx Endocrine/Hematology History: Denies: Hx Diabetes, Hx Thyroid Disease Cardiovascular History: Reports: Other Cardiovascular Problems/Disorders - 2 "LEAKING" HEART VALVES Denies: Hx Hypercholesterolemia, Hx Hypertension - HYPOTENSION, Hx Pacemaker/ ICD, Hx Peripheral Vascular Disease Respiratory History: Reports: Other Respiratory Problems/Disorders - HX BRONCHITIS History: Denies: Hx Renal Disease Musculoskeletal History: Denies: Hx Arthritis, Hx Rheumatoid Arthritis, Hx Osteoporosis, Hx Scoliosis Sensory History: Reports: Hx Contacts or Glasses Denies: Hx Cataracts, Hx Glaucoma, Hx Hearing Aid Opthamlomology History: Reports: Hx Contacts or Glasses Denies: Hx Cataracts, Hx Glaucoma Neurological History: Reports: Other Neuro Impairments/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 Denies: Hx Headaches Psychiatric History: Denies: Hx Anxiety, Hx Depression, Hx Panic Disorder - Cancer History Cancer Type, Location and Year: SKIN CANCER Hx Chemotherapy: No Hx Radiation Therapy: No - Surgical History Surgery Procedure, Year, and Place: hysterectomy, lipoma x2 REMOVAL, laproscopic Infectious Disease History: No Infectious Disease History: Denies: Traveled Outside the [place] in Last 30 Days - Family History Known Family History: Positive: Cardiac Disease, Hypertension - Social History Alcohol Use: None Hx Substance Use: No Substance Use Type: Reports: None Hx Tobacco Use: No Smoking Status (MU): Never Smoked Tobacco Review of Systems Negative: Fever Positive: Chest Pain Positive: Shortness Of Breath, Cough Positive: Myalgia - Back tightness All Other Systems Reviewed And Are Negative: Yes Physical Exam - Summary Physical Exam Summary: VITAL SIGNS: Reviewed. GENERAL: Patient is a well-developed and nourished female who is lying comfortable in the stretcher. Patient is not in any acute respiratory distress. HEAD AND FACE: No signs of trauma. No ecchymosis, hematomas or skull depressions. No sinus tenderness. EYES: PERRLA, EOMI x 2, No injected conjunctiva, no nystagmus. EARS: Hearing grossly intact. Ear canals and tympanic membranes are within normal limits. MOUTH: Oropharynx within normal limits. NECK: Supple, trachea is midline, no adenopathy, no JVD, no carotid bruit, no c- spine tenderness, neck with full ROM. CHEST: Symmetric, reproducible chest pain on left side of chest. LUNGS: Clear to auscultation bilaterally. No wheezing or crackles. CVS: Regular rate and rhythm, S1 and S2 present, no murmurs or gallops appreciated. ABDOMEN: Soft, non-tender. No signs of distention. No rebound, no guarding, and no masses palpated. Bowel sounds are normal. EXTREMITIES: FROM in all major joints, no edema, no cyanosis or clubbing. NEURO: Alert and oriented x 3. No acute neurological deficits. Speech is normal and follows commands. SKIN: Dry and warm. Triage Information Reviewed: Yes Vital Signs On Initial Exam: Initial Vitals Temp Pulse Resp BP Pulse Ox 97.7 F 64 16 123/95 96 07/11/19 13:34 07/11/19 13:34 07/11/19 13:34 07/11/19 13:34 07/11/19 13:34 Vital Signs Reviewed: Yes Procedures - Sedation Patient Received Moderate/Deep Sedation with Procedure: No Diagnostics - Vital Signs Vital Signs Temp Pulse Resp BP Pulse Ox 07/11/19 13:34 97.7 F 64 16 123/95 96 - Laboratory Result Diagrams: 07/11/19 13:50 07/11/19 13:50 Lab Statement: Any lab studies that have been ordered have been reviewed, and results considered in the medical decision making process. - Radiology CXR Radiology Interpretation Completed By: Radiologist Summary of Radiographic Findings: IMPRESSION: No active cardiopulmonary disease. An ED physician has reviewed this report. - EKG 1336 Cardiac Rate: NL - 78 bpm EKG Rhythm: Sinus Rhythm Summary of EKG Findings: EKG at 1336 shows sinus arrythmia at [address] elevations. An ED physician has reviewed and interpreted this EKG. Course/Dx - Course Assessment/Plan: 58 year old female presents to the ED with a chief complaint of shortness of breath starting several weeks ago. Patient reports an accompanying intermittent sharp left-sided chest pain of severity 4/10, that is not triggered by movement, deep breaths, or activity. She also reports palpitations, nonproductive cough, and back tightness. She denies fever. Patient does not smoke tobacco. History of bronchitis. Blood work without any significant abnormality except for glucose of 109. The first troponin is 0.00. EKG shows a normal sinus rhythm without any ST elevation. Chest x-ray impression: no active cardiopulmonary disease. Second troponin is 0.00. Patient reports that all symptoms have resolved. Patient Hear score: 1 therefore , low suspicion for CAD. Patient is not hypoxic or tachycardic. Wells criteria 0 . Therefore, no suspicion for PE. Patient has no abdominal bruit thus no suspicion for AAA. Patients pain does not radiate to the back and pain has resolved thus low suspicion for aortic dissection. I discussed all the findings and test results with the patient. Patient was instructed to return to the emergency room immediately if any of the symptoms return or worsen. Patient understands and agrees. Plan of care was discussed with the patient and patient understands and agrees. All questions were answered at patient satisfaction. There were no further complaints or concerns. PE before discharge : CVS: S1 and S2 present. No murmurs appreciated. Abdominal exam before discharge: Soft, non-tender. No signs of distention. No rebound no guarding, and no masses palpated. Bowel sounds are normal. Patient is alert and oriented x 3. Patient is hemodynamically stable. - Diagnoses Differential Diagnosis/HQI/PQRI: Positive: CHF, AL, Unstable Angina Provider Diagnoses: Atypical chest pain Discharge ED - Sign-Out/Discharge Documenting (check all that apply): Patient Departure - discharge home - Discharge Plan Condition: Stable Disposition: HOME Patient Education Materials: Chest Pain (ED) Referrals: Abdiaziz Ernandez MD [Primary Care Provider] - Additional Instructions: Follow up with your primary care provider in 2-3 days. Return to the ED if you experience new or worsened symptoms. - Billing Disposition and Condition Condition: STABLE Disposition: Home - Attestation Statements Document Initiated by Scribe: Yes Documenting Scribe: Shaka Llanos Provider For Whom Lan is Documenting (Include Credential): Chico Castillo MD Scribe Attestation: Shaka Lux, scribed for Chico Castillo MD on 07/11/19 at 2122. Scribe Documentation Reviewed: Yes Provider Attestation: The documentation as recorded by the Shaka miramontes accurately reflects the service I personally performed and the decisions made by Chico romero MD Status of Scribe Document: Viewed
[2019-07-11 14:13] LABS: INR 1.07 (0.82-1.09)
[2019-07-11 14:19] LABS: Albumin 4.4 g/dL (3.2-5.2); Albumin/Globulin Ratio 1.5 (1-3); Calcium 9.6 mg/dL (8.6-10.3); EGFR African American 83.7 (>60); EGFR Non-African American 69.2 (>60); Globulin 2.9 g/dL (2-4); Potassium 3.9 mmol/L (3.5-5.0); Total Bilirubin 0.5 mg/dL (0.2-1.0); Total Protein 7.3 g/dL (6.4-8.9)
[2019-07-11 15:16] LABS: C Reactive Protein 2.48 mg/L (<8.01)
[2019-07-11] MEDS ORDERED: Ketorolac INJ* 30 MG/ML 1 ML VIAL IV PUSH ONE (16:33)
[2019-07-11 17:52] VITALS: BP 120/83
== END 2019-07-11 17:51 | disposition home or self-care (01) ==
LOC: ED 13:32
DX: R07.89 Other chest pain (principal); I49.9 Cardiac arrhythmia, unspecified; R00.2 Palpitations; R05 Cough; R06.02 Shortness of breath; M79.10 Myalgia, unspecified site; Z91.030 Bee allergy status
CPT/HCPCS: 36415; 71046; 80053; 82550; 82553; 84484; 85025; 85610; 86140; 93005; 96374; 99283; J1885

== ENCOUNTER 2019-07-12 13:41 | Observation (INO) | payer BC ==
--- NOTE | 2019-07-12 14:05 | ED ---
HPI Chest Pain - HPI Summary HPI Summary: Patient is a 58 y/o F presenting to the ED for a chief complaint of chest pain. Patient notes intermittent shortness of breath, chest pain, upper back pain, palpitations, and fatigue for the last few weeks. On 07/09/19, she notes having diaphoresis and lightheadedness that lasted for 1 hour before resolving. She was seen at [facility] on 07/12/19 and discharged home. She was recommended to be seen at [facility] again for a chest MRI by her PCP after her symptoms persisted. Any significant PMHx or PSHx is denied. FMHx is significant for [place], but she denies a history of blood clots. She recently went to [place] in April 2019. She was placed on medication for an ear infection recently. - History of Current Complaint Chief Complaint: EDChestWallPain Time Seen by Provider: 07/12/19 14:01 Hx Obtained From: Patient Onset/Duration: Atraumatic, Still Present Timing: Constant Initial Severity: Mild Current Severity: Mild Pain Intensity: 3 Pain Scale Used: 0-10 Numeric Chest Pain Location: Diffuse Chest Pain Radiates: Yes Chest Pain Radiates To:: Back - Upper Character: Dyspnea at Rest Aggravating Factor(s): Nothing Alleviating Factor(s): Nothing Associated Signs and Symptoms: Positive: Chest Pain, Shortness of Breath, Lightheadedness - Resolved, Diaphoresis - Resolved, Palpitations, Back Pain - Upper, Other: - Positive fatigue - Allergy/Home Medications Allergies/Adverse Reactions: Allergies Allergy/AdvReac Type Severity Reaction Status Date / Time bee venom protein (honey bee) Allergy Anaphylatic Verified 07/12/19 13:58 Shock PMH/Surg Hx/FS Hx/Imm Hx Previously Healthy: Yes Endocrine/Hematology History: Denies: Hx Diabetes, Hx Thyroid Disease Cardiovascular History: Reports: Other Cardiovascular Problems/Disorders - 2 "LEAKING" HEART VALVES Denies: Hx Hypercholesterolemia, Hx Hypertension - HYPOTENSION, Hx Pacemaker/ ICD, Hx Peripheral Vascular Disease Respiratory History: Reports: Other Respiratory Problems/Disorders - HX BRONCHITIS History: Denies: Hx Renal Disease Musculoskeletal History: Denies: Hx Arthritis, Hx Rheumatoid Arthritis, Hx Osteoporosis, Hx Scoliosis Sensory History: Reports: Hx Contacts or Glasses Denies: Hx Cataracts, Hx Glaucoma, Hx Legally Blind, Hx Deafness, Hx Hearing Aid Opthamlomology History: Reports: Hx Contacts or Glasses Denies: Hx Cataracts, Hx Glaucoma, Hx Legally Blind EENT History: Denies: Hx Deafness Neurological History: Reports: Other Neuro Impairments/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 Denies: Hx Headaches Psychiatric History: Denies: Hx Anxiety, Hx Depression, Hx Panic Disorder - Cancer History Cancer Type, Location and Year: SKIN CANCER Hx Chemotherapy: No Hx Radiation Therapy: No - Surgical History Surgical History: Yes Surgery Procedure, Year, and Place: hysterectomy, lipoma x2 REMOVAL, laproscopic Infectious Disease History: No Infectious Disease History: Denies: Traveled Outside the [place] in Last 30 Days - Family History Known Family History: Positive: Cardiac Disease, Hypertension - Social History Occupation: Employed Full-time Lives: With Family Alcohol Use: None Hx Substance Use: No Substance Use Type: Reports: None Hx Tobacco Use: No Smoking Status (MU): Never Smoked Tobacco Review of Systems Positive: Fatigue, Skin Diaphoresis - Resolved Positive: Palpitations, Chest Pain Positive: Shortness Of Breath Positive: Myalgia - Upper back Neurological: Other - Positive lightheadedness, resolved All Other Systems Reviewed And Are Negative: Yes Physical Exam - Summary Physical Exam Summary: Constitutional: Well-developed, Well-nourished, Alert. (-) Distressed Skin: Warm, Dry HENT: Normocephalic; Atraumatic Eyes: Conjunctiva normal Neck: Musculoskeletal ROM normal neck. (-) JVD, (-) Stridor, (-) Nuchal rigidity Cardio: Rhythm regular, rate normal, Heart sounds normal; Intact distal pulses; Radial pulses are 2+ and symmetric. (-) Murmur Pulmonary/Chest wall: Effort normal. (-) Respiratory distress, (-) Wheezes, (-) Rales Abd: Soft, (-) tenderness, (-) Distension, (-) Guarding, (-) Rebound Musculoskeletal: (-) Edema Lymph: (-) Cervical adenopathy Neuro: Alert, Oriented x3 Psych: Mood and affect Normal Triage Information Reviewed: Yes Vital Signs On Initial Exam: Initial Vitals Temp Pulse Resp BP Pulse Ox 97.4 F 68 16 121/71 100 07/12/19 13:45 07/12/19 13:45 07/12/19 13:45 07/12/19 13:45 07/12/19 13:45 Vital Signs Reviewed: Yes Procedures - Sedation Patient Received Moderate/Deep Sedation with Procedure: No Diagnostics - Vital Signs Vital Signs Temp Pulse Resp BP Pulse Ox 07/12/19 13:45 97.4 F 68 16 121/71 100 - Laboratory Result Diagrams: 07/12/19 14:27 07/12/19 14:27 Lab Statement: Any lab studies that have been ordered have been reviewed, and results considered in the medical decision making process. - CT Chest/Thorax CTA CT Interpretation Completed By: Radiologist Summary of CT Findings: Chest/Thorax CTA IMPRESSION: #. Negative for pulmonary embolism. #. Bilateral mild subsegmental atelectasis. No compelling evidence for pneumonia. Correlate for potential obstructive lung disease. Reviewed by Dr. Storey. - EKG 13:46 Cardiac Rate: NL - 65 BPM EKG Rhythm: Sinus Rhythm ST Segment: Normal Ectopy: None Summary of EKG Findings: An EKG at 13:46 reveals normal sinus rhythm with 65 BPM , T wave inversion in lead III, nml axis, nml intervals. No STEMI. No acute changes. ED physician has reviewed and interpreted this EKG. Chest Pain Course/Dx - Course Course Of Treatment: 58 y/o F p/w SOB, palpitations, CP. - Shortness of breath ddx: Most likely ACS vs PE. - EKG w/o ischemic changes, trop negx1 here. recent neg trop. Would benefit from tele and possible stress. Heart score 4: moderate. COPD exacerbation/asthma - no h/o COPD, no wheezing on exam. Low suspicion. PNA - no sputum production, no fevers or chills. No leukocytosis. Recent CXR w/o infiltrate. Low suspicion. PTX - breath sounds equal, no risk factors for PTX, CXR prior w/o PTX. CHF - no h/o CHF, no BOWMAN or orthopnea, no BLE edema, CXR w/o pulmonary edema. PE - CTA chest w/o PE - Diagnoses Provider Diagnoses: Dyspnea, Chest pain, Palpitations - Provider Notifications Discussed Care Of Patient With: Sandy Duron - At 16:55, Dr. Sandy Duron reviewed the patients case and agrees to admit the patient [place] [facility] [place] a diagnosis of dyspnea, palpitations, and chest pain. Time Discussed With Above Provider: 16:55 Instructed by Provider To: Admit As Inpatient Discharge ED - Sign-Out/Discharge Documenting (check all that apply): Patient Departure - Admit - Discharge Plan Condition: Stable Disposition: ADMITTED TO [facility] Referrals: Abdiaziz Ernandez MD [Primary Care Provider] - - Billing Disposition and Condition Condition: STABLE Disposition: Admitted to [facility] - Attestation Statements Document Initiated by Lan: Yes Documenting Scribe: Leah Marin Provider For Whom Lan is Documenting (Include Credential): Jessie Storey MD Scribe Attestation: Leah Lux, scribed for Jessie Storey MD on 07/12/19 at 1725. Scribe Documentation Reviewed: Yes Provider Attestation: The documentation as recorded by the Leah miramontes accurately reflects the service I personally performed and the decisions made by , Jessie Storey MD Status of Scribe Document: Viewed
[2019-07-12 14:40] LABS: ABS Eosinophils 0.1 10^3/ul (0-0.6); ABS Lymphocytes 1.7 10^3/ul (1.0-4.8); ABS Monocytes 0.3 10^3/ul (0-0.8); ABS Neutrophils 2.8 10^3/ul (1.5-7.7); Eosinophil % 1.3 %; Hematocrit 36 % (35-47); Hemoglobin 12.1 g/dL (12.0-16.0); Lymphocyte % 35.5 %; Mean Corpuscular HGB Conc 34 g/dL (31-36); Mean Corpuscular Hemoglobin 28 pg (27-31); Mean Corpuscular Volume 83 fL (80-97); Mean Platelet Volume 8.4 fL (7.4-10.4); Nucleated Red Blood Cells % 0.1; Platelet Count 322 10^3/uL (150-450); Red Blood Count 4.32 10^6 /uL (3.70-4.87); Red Cell Distribution Width 14 % (10-15); White Blood Count 4.9 10^3/uL (3.5-10.8)
[2019-07-12 15:12] LABS: Albumin 4.1 g/dL (3.2-5.2); Albumin/Globulin Ratio 1.6 (1-3); Calcium 9.2 mg/dL (8.6-10.3); EGFR African American 82.5 (>60); EGFR Non-African American 68.2 (>60); Globulin 2.5 g/dL (2-4); Potassium 4.4 mmol/L (3.5-5.0); Total Bilirubin 0.4 mg/dL (0.2-1.0); Total Protein 6.6 g/dL (6.4-8.9)
[2019-07-12] MEDS ORDERED: Iohexol 350* (CONTRAST) 500 ML MDV IV ONE (15:26)
[2019-07-12] MEDS ORDERED: Acetaminophen TAB* 325 MG PO PRN (17:32)
[2019-07-12] MEDS ORDERED: Enoxaparin(*) 40 MG/0.4 ML SYR SUBCUT SCH (18:00)
[2019-07-12 19:47] LABS: Magnesium 2.1 mg/dL (1.9-2.7)
--- NOTE | 2019-07-12 19:49 | HP ---
CC: Dr. Ernandez; Dr. Ram * HISTORY AND PHYSICAL: DATE OF ADMISSION: 07/12/19 PROVIDER: Jewell Rosado NP PRIMARY CARE PHYSICIAN: Dr. Ernandez. ATTENDING PHYSICIAN WHILE IN THE HOSPITAL: Dr. Sandy Bustillos * (dictated by Jewell Rosado NP). CHIEF COMPLAINT: 1. Chest pain. 2. Shortness of breath. HISTORY OF PRESENT ILLNESS: Ms. Lundberg is a 58-year-old female with a past medical history significant for hypotension and depression, who presented to the emergency room with complaints of shortness of breath, palpitations and chest pain that started back in May. The patient does report that over the last approximately a month, she has had progressively worsening palpitations and increased chest pain and shortness of breath. The patient does report that these episodes last approximately a few minutes and then resolve on their own. She does report associated lightheadedness, nausea with these episodes. She does report that they occur several times a day and have become more frequent over the past month. The patient does report that she exercises and does cardio exercise 3 days a week. She uses a stair climber and lifts weights and denies any reported chest pain or associated shortness of breath with exercise or palpitations. The patient does report that these palpitations have become more frequent. She develops pain in her upper back, feels lightheaded. She denies them associated with activity. She does report that at times they occur when she is sitting at her desk at work, she will develop palpations, they last a few minutes and then go away. She does report she drinks approximately 1.5 cups of coffee daily. No other sources of caffeine. The patient reports that on Thursday it was the most severe. She reports that she had palpitations, they lasted over an hour. At that time, she was standing at her sink, she became lightheaded and sweaty and does report that they eventually subsided. The patient was seen in her primary care provider's office, who recommended she come to emergency room for further evaluation. The patient was seen in the emergency room and due to her chest pain, palpitations and shortness of breath, Hospital Medicine was asked to see and evaluate her for admission. The patient did have a cardiac catheterization in 2006, at that time she had normal coronary artery system with an EF of 55% and normal wall motion. Her last transthoracic echocardiogram was from 02/15/19, at that time she had an EF of 50% to 55%, normal diastolic filling pattern. Left atrial cavity was mildly dilated. 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 She had jackson trileaflet aortic valve with trace regurgitation. Mitral valve with grade 1 regurgitation and mild calcification of the mitral valve annulus. A jackson tricuspid valve with mild to moderate regurgitation. No pulmonary hypertension and mildly dilated aortic arch. Due to the patient's chest pain, shortness of breath and palpitations, Hospital Medicine was asked to see and evaluate for admission. PAST MEDICAL HISTORY: Significant for, 1. Hypotension. 2. Depression. PAST SURGICAL HISTORY: 1. Hysterectomy. 2. Laparoscopy x2. MEDICATIONS: Home medications include: 1. Celexa 40 mg p.o. daily. 2. Magnesium oxide 400 mg p.o. daily. 3. Multivitamin 1 tab p.o. daily. ALLERGIES: No known drug allergies. Allergy to BEE STINGS. FAMILY HISTORY: Father with a history of CVA, at the age of 84. No reported history of diabetes. Mother with unknown type of cancer, at the age of 76. SOCIAL HISTORY: She denies any tobacco or illicit drug use. She does report rate alcohol use. She is . She lives with her . Surrogate decision maker in the event she is unable to make her own decisions ia her , Cristela Triplett. She is a full code. REVIEW OF SYSTEMS: She denies any fever, chills, unintended weight loss. She does complain of chest pain, feeling uncomfortable to the left side, squeezing type pain, radiates down her left arm with tingling in her fingers. The patient also complains of palpitations. She denies any cough or hemoptysis. She does report shortness of breath. She does report nausea associated with her episode of shortness of breath and palpitations. She denies any diarrhea or abdominal pain. Denies any gross hematuria, dysuria, focal weakness, sensory loss. Denies any visual complaints, dysphagia, arthralgias, myalgias, rashes, lesions, open sores, psychosis or anxiety. PHYSICAL EXAMINATION GENERAL: Ms. Izabela Lundberg is a 58-year-old female. She is alert and oriented, resting on the stretcher in the emergency room. She is in no acute distress. VITAL SIGNS: Blood pressure 103/67, heart rate 64, respirations are 19, O2 saturation 93%, temperature was 97.4. HEENT: Head is atraumatic, normocephalic. Eyes, EOMs are intact. Sclerae anicteric and not pale. Oral mucosa is moist. NECK: Supple. LUNGS: Clear to auscultation bilaterally. No wheezes, rales, or rhonchi. CARDIAC: S1, S2. Regular rate and rhythm. No murmurs, rubs or gallops. ABDOMEN: Soft and nontender. Bowel sounds are present x4. EXTREMITIES: She is able to to move all 4 extremities. There is no clubbing or cyanosis. NEUROLOGIC: She is awake, alert and oriented x3. Her speech is clear. Thought process is intact. There is no gross focal deficit. SKIN: Intact. LABORATORY DATA AND DIAGNOSTIC STUDIES: WBCs are 4.9, RBCs 4.32, hemoglobin 12.1, hematocrit is 36, platelet count was 322. Sodium 141, potassium 4.4, chloride 106, carbon dioxide 28, anion gap is 7, BUN is 17, creatinine 0.85, glucose is 83, calcium 9.2. Total bilirubin 0.40, ASTs are 18, ALTs are 15, alkaline phosphatase is 55. Troponin was 0.00 x1. She had an electrocardiogram, which showed sinus rhythm at a rate of 65. There is no ST or T wave changes. She had a CTA of the chest, radiologist's impression: Negative for pulmonary embolism, bilateral mild subsegmental atelectasis. No compelling evidence for pneumonia, correlated for potential obstructive lung disease.. ASSESSMENT AND PLAN: Ms. Lundberg is a 58-year-old female with a past medical history significant for hypotension and depression, who presented to the emergency room with complaints of shortness of breath, palpitations and chest pain. She will be admitted under observation for: 1. Chest pain. We will bring her in to rule out acute coronary syndrome. She will be placed on [facility] telemetry. We will place her on telemetry. We will monitor overnight. She will have a nuclear exercise stress test in the a.m.. I will repeat a CBC. We will trend her troponins and she will have lipid profile in the a.m. The patient did have a transthoracic echocardiogram , at that time she had an EF of 50% to 55%. Normal diastolic filling pattern. She did have left atrial cavity that was mildly dilated. [place] mitral valve with mild grade 1 regurgitation, jackson trileaflet aortic valve with trace regurgitation, mild to moderate tricuspid regurgitation, no evidence of pulmonary hypertension and jackson pulmonic valve with trace regurgitation. Aortic root was normal and this showed no change from 05/20/17, other than her mitral regurgitation was less. 2. Depression. She will continue on the Celexa 40 mg p.o. daily. 3. FEN: She can have a heart healthy, no caffeine diet. 4. DVT prophylaxis: I will place her on Lovenox subcu. 5. Code status: She is a full code. TIME SPENT: Time spent on this admission was 60 minutes. Greater than half that time was spent at the bedside reviewing events leading thus far to her hospitalization, performing physical exam and reviewing my plan of care. I have discussed with my attending Dr. Sandy Bustillos; she is in agreement with my plan. JEWELL ROSADO, GRAPHIC DESIGN TEACHER [id number]/CPS #: [id number] AMBERLY
[2019-07-13 06:49] LABS: ABS Eosinophils 0.1 10^3/ul (0-0.6); ABS Monocytes 0.3 10^3/ul (0-0.8); Eosinophil % 3.3 %; Hematocrit 37 % (35-47); Hemoglobin 12.8 g/dL (12.0-16.0); Lymphocyte % 44.1 %; Mean Corpuscular HGB Conc 34 g/dL (31-36); Mean Corpuscular Hemoglobin 28 pg (27-31); Mean Corpuscular Volume 82 fL (80-97); Mean Platelet Volume 8.1 fL (7.4-10.4); Platelet Count 310 10^3/uL (150-450); Red Blood Count 4.52 10^6 /uL (3.70-4.87); Red Cell Distribution Width 15 % (10-15); White Blood Count 4.6 10^3/uL (3.5-10.8)
[2019-07-13 07:05] LABS: BUN/Creatinine Ratio 16.3 (8-20); Calcium 9.1 mg/dL (8.6-10.3); EGFR African American 88.5 (>60); EGFR Non-African American 73.2 (>60); HDL Cholesterol 47.3 mg/dL
[2019-07-13] MEDS ORDERED: Citalopram TAB* 20 MG PO SCH (09:00)
[2019-07-13] MEDS ORDERED: Magnesium Oxide TAB* 400 MG PO SCH (09:00)
[2019-07-13] MEDS ORDERED: Multivitamins/Minerals TAB PO SCH (09:00)
[2019-07-13] MEDS ORDERED: Aspirin EC TAB* 81 MG TAB.EC PO SCH (09:00)
[2019-07-13 12:19] VITALS: BP 119/71
--- NOTE | 2019-07-13 16:15 | CONSULT ---
Subjective Date of Service: 07/13/19 - CC: CP, SOB, Racing heart, cough Interval History: Patient of Dr Ram'janessa with MR, normal C's on prior cath . The patient called her administrative program specialist due to dry cough since June and [place] [facility] May pt had ear symptoms, treated with nasal spray, no abx. Developed a dry cough on awakening that never cleared. Pt notes CP 2x/day, left chest, diffuse, squeezing pain. Last seconds. May or may not be associated with SOB/coughing/racing heart. Not pleuritic. Pt noes occasional racing heart, Thursday was sweaty, clammy and SOB with racing heart. On treadmill today no reproduction of symptoms. Pt denies post nasal gtt or GERD symptoms. No orthopnea no PND. Family History: Unchanged from Admission - Father CAD, CVA, RA, cancer, Mohter OA, RA, cancer. Social History: Unchanged from Admission - Former smoker, drinks coffe, no recreational drugs/EtOH. Past Medical History: Unchanged from Admission - Pleuritic CP past, ANJUM, OA, mitral insufficiency, overweight, lipids, concussion Medications Active Medications: Acetaminophen (Tylenol Tab*) 650 mg PO Q4H PRN PRN Reason: MILD PAIN or TEMP > 100.4 Aspirin (Aspirin Ec Tab*) 81 mg PO DAILY [facility] Last Admin: 07/13/19 07:33 Dose: 81 mg Citalopram Hydrobromide (Celexa Tab*) 40 mg PO DAILY [facility] Last Admin: 07/13/19 07:33 Dose: 40 mg Enoxaparin Sodium (Lovenox(*)) 40 mg SUBCUT Q24H [facility] Last Admin: 07/12/19 18:05 Dose: 40 mg Magnesium Oxide (Magox 400 Tab*) 400 mg PO DAILY [facility] Last Admin: 07/13/19 07:33 Dose: 400 mg Multivitamins/Minerals (Theragran/Minerals Tab*) 1 tab PO DAILY [facility] Last Admin: 07/13/19 07:33 Dose: 1 tab Home Medications: Citalopram TAB* [CeleXA TAB*] 40 mg PO DAILY 07/11/19 [History Confirmed ] Magnesium Oxide TAB* [MagOx 400 TAB*] 400 mg PO DAILY 07/11/19 [History Confirmed 07/12/19] Multivitamins/Minerals TAB* [Theragran/minerals TAB*] 1 tab PO DAILY 07/11/19 [ History Confirmed 07/12/19] Review of Systems - Measurements Intake and Output: Intake and Output Last 24 Hours 07/11/19 07/12/19 07/13/19 07/14/19 04:59 04:59 04:59 04:59 Intake Total 0 50 Balance 0 50 Weight 193 lb 3.2 oz Intake: IV Fluids 50 Oral 0 0 - Review of Systems General Comments: Denies orthopnea, PND, fevers, chills, no sputum production, no change in appetite, no leg edema. Review of Systems Statement: All other review of systems negative, unless stated above. Objective Vital Signs: Temp Pulse Resp BP Pulse Ox 98.0 F 62 18 119/71 98 07/13/19 11:24 07/13/19 11:24 07/13/19 11:24 07/13/19 11:24 07/13/19 11:24 Intake and Output Last 24 Hours 07/11/19 07/12/19 07/13/19 07/14/19 04:59 04:59 04:59 04:59 Intake Total 0 50 Balance 0 50 Weight 193 lb 3.2 oz Intake: IV Fluids 50 Oral 0 0 Oxygen Devices in Use Now: None Appearance: Obese female, lying at 40 degees, coughing frequently, appears mildly under the weather c/w URI Eyes: No Scleral Icterus, PERRLA Ears/Nose/Mouth/Throat: Clear Oropharnyx, Mucous Membranes Moist Neck: NL Appearance and Movements; NL JVP, Trachea Midline Respiratory: Symmetrical Chest Expansion and Respiratory Effort - broncial BS, no wheezes, rales, rhonchi. Cardiovascular: NL Sounds; No Murmurs; No JVD - trace murmur RUSB, no murmur heard LLSB or apex., RRR Abdominal: No Hepatosplenomegaly - obese, normal BS, non tender. Extremities: No Edema, No Clubbing, Cyanosis Skin: No Rash or Ulcers Neurological: Alert and Oriented x 3, NL Muscle Strength and Tone Lines/Tubes/Other Access: Clean, Dry and Intact Peripheral IV Laboratory Results: 07/13/19 06:31 07/13/19 06:31 Total Bilirubin 0.40 mg/dL (0.2-1.0) 07/12/19 14:27 AST 18 U/L (13-39) 07/12/19 14:27 ALT 15 U/L (7-52) 07/12/19 14:27 Alkaline Phosphatase 55 U/L (34-104) 07/12/19 14:27 Total Protein 6.6 g/dL (6.4-8.9) 07/12/19 14:27 Albumin 4.1 g/dL (3.2-5.2) 07/12/19 14:27 Globulin 2.5 g/dL (2-4) 07/12/19 14:27 Albumin/Globulin Ratio 1.6 (1-3) 07/12/19 14:27 Triglycerides 138 mg/dL 07/13/19 06:31 Cholesterol 158 mg/dL 07/13/19 06:31 LDL Cholesterol 83 mg/dL 07/13/19 06:31 HDL Cholesterol 47.3 mg/dL 07/13/19 06:31 07/12/19 07/12/19 14:27 19:08 Troponin I 0.00 0.00 Diagnostic Imaging: Patient Name: BAM JOHNSON Medical Record#: [id number] Ordering Physician: Jessie Storey MD Acct.#: [id number] : 1960 Age: 58 Sex: F Location: EMERGENCY DEPARTMENT Exam Date: 07/12/191420 ADM Status: [facility] ER Order Information: CTA CHEST Accession Number: [id number] CPT: 97475 INDICATION: Shortness of breath. Tachycardia arrhythmia. Chest pain. COMPARISON: July 11, 2019 chest radiograph. TECHNIQUE: Multidetector CT images were obtained from the lung apices to the upper abdomen with 75 mL Omnipaque 350 IV contrast. Pulmonary angiogram protocol. Multiplanar reformation including with maximum intensity projection. REPORT: LUNG: Mild bilateral predominant dependent atelectasis. No compelling alveolar consolidation to suggest pneumonia, focal pulmonary lesion, pleural effusion, or pneumothorax. Negative for central endobronchial lesions. MEDIASTINUM / AXILLA: #. Negative for thoracic lymphadenopathy, cardiomegaly, or pericardial effusion. Normal diameter thoracic aorta. #. No filling defects are identified from the main to the subsegmental pulmonary arteries to indicate presence of a pulmonary embolism. UPPER ABDOMEN: Unremarkable limited visualized upper abdomen viscera. SOFT TISSUE: Unremarkable superficial soft tissues. BONES: Negative for fractures or suspicious thoracic osseous lesions. IMPRESSION: #. Negative for pulmonary embolism. #. Bilateral mild subsegmental atelectasis. No compelling evidence for pneumonia. Correlate for potential obstructive lung disease. <Electronically signed by Chico Jolly MD in OV> 07/12/19 1640 ECHO 02/10/19: EF 55%, aneurysmal atrialseptum, trace AI, mild MR, MAC, mild to moderate TR, normal PA pressure. Patient Name: BAM JOHNSON Medical Record#: [id number] Ordering Physician: Jewell Rosado NP Acct.#: [id number] : 1960 Age: 58 Sex: F Location: [address] [place] [address] MEDICAL/TELEMETRY Exam Date: 07/13/19 06 ADM Status: ADM Jett Order Information: NUCLEAR CARDIAC STRESS TEST Accession Number: [id number] CPT: 37523 INDICATION: Chest pain, shortness of breath. COMPARISON: April 24, 2007. TECHNIQUE: #. One day protocol. #. On July 13, 2019: 10.300 mCi of Tc-99m Myoview were administered IV. SPECT images of the heart were obtained. #. On July 13, 2019: Under the direction of Dr. Mercado, an exercise stress test was performed. The patient achieved a peak heart rate of 149 bpm, 93 % of the age- predicted maximum. Subsequently, the patient was given an IV injection of 25.600 mCi Tc- 99m Myoview. SPECT images of the heart were obtained and a gated wall motion study was performed. FINDINGS: Gated wall motion images were obtained at stress and demonstrate wall motion to be within normal limits. The calculated left ventricular ejection fraction is 67 % at stress. Estimated LEFT ventricular end diastolic volume is 83 mL. Transient Ischemic Dilatation (TID) of the left ventricle 1.15. Abnormal range is greater than 1.13 to 1.38. Based on review of the attenuation corrected and non corrected images the distribution of radiopharmaceutical within the myocardium on the stress and rest images is within normal limits. No fixed or reversible regions of hypoperfusion evident. IMPRESSION: #. Normal LEFT ventricular wall motion and estimated ejection fraction. #. No scintigraphic evidence for stress-induced ischemia or presence of an infarct. #. Borderline elevated transient ischemic dilatation which is a potential marker of coronary artery disease on stress myocardial perfusion imaging. ASSESSMENT: Low risk based on nuclear assessment. Based on imaging criteria from ACC/AHA 2002 Guideline Update for the Management of Patients With Chronic Stable Angina Table 23. Noninvasive Risk Stratification. <Electronically signed by Chico Jolly MD in OV> 07/13/19 1111 Dictated By: Chico Jolly MD EKG Data: NSR, normal ST'. Assessment/Plan Patient with atypical CP with CC of SOB/cough, palps. Cardiac: No cath recommended. I reviewed nuclear study personally. TID index minimally elevated, this can occur from hypertension, elevated LVEDP and more. Exercise portion did not show significant ST changes. Recommend outpatient EM for racing/palpitation symptoms (pt can call cardiology on discharge for this). Out patient echo can be checked for valve function with hx MR, TR to ensure these have not increased despite reassuring exam. Pulmonary: For cough and abnormal lung exam with hx smoking in the past: -Consider albuterol trial -Consider GERD recommendations/lifestyle changes in case contributing, this could cause AM cough and squeezing CP.
--- NOTE | 2019-07-13 20:03 | DS ---
CC: Dr. Ram; Dr. Ernandez * DISCHARGE SUMMARY: DATE OF ADMISSION: 07/12/19 DATE OF DISCHARGE: 07/13/19 PRINCIPAL DISCHARGE DIAGNOSIS: Chest pain. SECONDARY DISCHARGE DIAGNOSES: 1. Hypotension. 2. Depression. MEDICATIONS FOR DISCHARGE: 1. Multivitamin 1 tab daily. 2. Magnesium oxide 400 mg daily. 3. Citalopram 40 mg daily. 4. Albuterol inhaler 1 puff inhaled q.6 p.r.n. shortness of breath. PHYSICAL EXAMINATION: Temperature 98.0, heart rate 62, respiratory rate 18, pulse ox 98% on room air, blood pressure 119/71. General: Alert, well- appearing female, resting comfortably in bed. HEENT: Pupils equal, round, reactive to light. Oral mucosa is moist. Neck: No JVP. No adenopathy. Chest : She is in a regular rate and rhythm with a soft systolic murmur throughout. Her lungs are clear bilaterally. Abdomen: Soft, nontender, nondistended. No CVA tenderness. Extremities: No edema, rashes, or ulcers. PERTINENT IMAGING ON THIS ADMISSION: A stress test from 07/13/19 showed normal LV wall motion and estimated ejection fraction. No scintigraphic evidence for stress- induced ischemia or presence of an artifact. Borderline elevated transient ischemic dilation, which is a potential marker of coronary artery disease on stress myocardial perfusion imaging. CTA of the chest and thorax from 07/12/19 showed negative for pulmonary embolism , bilateral mild subsegmental atelectasis, no compelling evidence for pneumonia. CONSULTATION DURING THIS ADMISSION: Dr. Jasmyne Hoskins from Cardiology. HOSPITAL COURSE BY PROBLEM: Chest pain. Izabela presented with atypical chest pain that had been going on for several weeks. An EKG at admission showed no ischemic changes. Troponins were negative x4. Given her risk factors including early family history of cardiac disease, she underwent a nuclear stress test on the morning of 07/13/19, which was significant for transient ischemic dilation. Dr. Hoskins was consulted for this finding and did not recommend further ischemic evaluation. She suggested that the symptoms were more likely related to an alternative etiology and recommended an albuterol trial and follow up with the patient's primary manager golf Dr. Ram for outpatient event monitor to work up the palpitations and also a repeat echo done as an outpatient to reevaluate her valve function. She is being discharged with a trial of albuterol. She has had no recurrence of chest pain during her admission, and she will follow up with her primary care physician and her manager golf. DISPOSITION: Ms. Lundberg is being discharged to home. CONDITION AT THE TIME OF DISCHARGE: Stable. [id number]/[facility] #: [id number] MTDD
== END 2019-07-13 18:30 | disposition home or self-care (01) ==
LOC: ED 13:41 → MEDTELE 17:04
PROVIDERS: ADMIT Internal Medicine; ATTEND Internal Medicine
DX: R07.9 Chest pain, unspecified (principal); R06.00 Dyspnea, unspecified; R06.02 Shortness of breath; R42 Dizziness and giddiness; R00.2 Palpitations; I95.9 Hypotension, unspecified; F32.9 Major depressive disorder, single episode, unspecified; Z79.899 Other long term (current) drug therapy; Z85.828 Personal history of other malignant neoplasm of skin; R53.83 Other fatigue
CPT/HCPCS: 36415; 71275; 78452; 80048; 80053; 80061; 83735; 84484; 85025; 93005; 93017; 99284; A9270-GY; A9502; G0378; J1650; Q9967

== ENCOUNTER 2022-06-07 17:27 | Observation (INO) ==
[2022-06-07 17:54] LABS: ABS Eosinophils 0.1 10^3/ul (0-0.6); ABS Lymphocytes 2.1 10^3/ul (1.0-4.8); ABS Monocytes 0.4 10^3/ul (0-0.8); ABS Neutrophils 3.3 10^3/ul (1.5-7.7); Eosinophil % 2.1 %; Hematocrit 36 % (35-47); Mean Corpuscular HGB Conc 33 g/dL (31-36); Mean Corpuscular Hemoglobin 27 pg (27-31); Mean Corpuscular Volume 83 fL (80-97); Mean Platelet Volume 7.8 fL (7.4-10.4); Platelet Count 335 10^3/uL (150-450); Red Cell Distribution Width 15 % (10-15)
[2022-06-07] MEDS ORDERED: Morphine 4 MG/ML VIAL (1 ml) IV ONE (18:07)
[2022-06-07 18:17] LABS: High Sens Troponin Baseline < 3 pg/mL (<15)
[2022-06-07 18:24] LABS: ALT 11 U/L (7-52); AST 13 U/L (13-39); Albumin 4.2 g/dL (3.2-5.2); Albumin/Globulin Ratio 1.9 (1-3); Alkaline Phosphatase 43 U/L (35-149); Anion Gap 7 mmol/L (2-11); Blood Urea Nitrogen 13 mg/dL (6-24); CO2 Carbon Dioxide 26 mmol/L (22-32); Calcium 8.9 mg/dL (8.6-10.3); Chloride 105 mmol/L (101-111); Globulin 2.2 g/dL (2-4); Glucose 92 mg/dL (70-100); Potassium 3.9 mmol/L (3.5-5.0); Sodium 138 mmol/L (135-145); Total Protein 6.4 g/dL (6.4-8.9); eGFR CKD-EPI 97.1 (>60)
[2022-06-07 19:33] LABS: High Sensitivity Troponin 1 Hr < 3 pg/mL (<15)
[2022-06-07] MEDS: Enoxaparin 40 MG/0.4 ML SYR SUBCUT SCH (21:21)
[2022-06-07 21:29] LABS: C Reactive Protein 2.69 mg/L (<8.01)
[2022-06-08 06:06] LABS: Cholesterol 156 mg/dL; HDL Cholesterol 51.1 mg/dL; LDL Cholesterol 68 mg/dL; Triglycerides 184 mg/dL
[2022-06-08] MEDS: Enoxaparin 40 MG/0.4 ML SYR SUBCUT SCH (20:38)
[2022-06-09 07:10] LABS: ABS Eosinophils 0.1 10^3/ul (0-0.6); ABS Lymphocytes 2.3 10^3/ul (1.0-4.8); ABS Monocytes 0.3 10^3/ul (0-0.8); ABS Neutrophils 1.9 10^3/ul (1.5-7.7); Eosinophil % 2.9 %; Hematocrit 34 % (35-47); Hemoglobin 11.6 g/dL (12.0-16.0); Lymphocyte % 49.6 %; Mean Corpuscular HGB Conc 34 g/dL (31-36); Mean Corpuscular Hemoglobin 28 pg (27-31); Mean Corpuscular Volume 82 fL (80-97); Mean Platelet Volume 7.8 fL (7.4-10.4); Platelet Count 282 10^3/uL (150-450); Red Blood Count 4.18 10^6 /uL (3.70-4.87); Red Cell Distribution Width 15 % (10-15); White Blood Count 4.6 10^3/uL (3.5-10.8)
[2022-06-09 07:23] LABS: Calcium 8.5 mg/dL (8.6-10.3); Potassium 3.8 mmol/L (3.5-5.0); eGFR CKD-EPI 92.3 (>60)
[2022-06-09 17:15] VITALS: BP 110/63
== END 2022-06-09 18:10 | disposition home or self-care (01) ==
LOC: ED 17:27 → SUATTDRO 20:59 → INTOOBSV 20:59 → EDHOLD 20:59 → MEDTELE 06-08 16:21
PROVIDERS: ADMIT Student in an Organized Health Care Education/Training Program; ATTEND Internal Medicine